=== PATIENT | male | born 1965 | race Caucasian/White ===

== ENCOUNTER 2017-09-02 14:32 | Outpatient (RCR) | payer OTHER | END 2017-09-08 12:43 | disposition home or self-care (01) | LOC: WSOH 14:32 | DX: S66.912A Strain of unspecified muscle, fascia and tendon at wrist and hand level, left hand, initial encounter (principal); X50.3XXA Overexertion from repetitive movements, initial encounter; Y92.214 College as the place of occurrence of the external cause; Y93.H1 Activity, digging, shoveling and raking; Y99.0 Civilian activity done for income or pay; Z96.9 Presence of functional implant, unspecified; Z79.84 Long term (current) use of oral hypoglycemic drugs; Z79.82 Long term (current) use of aspirin; Z88.0 Allergy status to penicillin; Z88.2 Allergy status to sulfonamides | CPT/HCPCS: 24091; A6549 ==

== ENCOUNTER → 2017-09-12 | Outpatient (CLI) | payer OTHER | LOC: COL.RAD 09-06 09:00 | DX: M87.838 Other osteonecrosis of left carpus (principal); M19.032 Primary osteoarthritis, left wrist ==

== ENCOUNTER 2017-09-14 14:47 | Outpatient (RCR) | payer OTHER | END 2017-09-30 10:12 | disposition home or self-care (01) | LOC: WSOH 14:47 | DX: S66.912D Strain of unspecified muscle, fascia and tendon at wrist and hand level, left hand, subsequent encounter (principal); M87.038 Idiopathic aseptic necrosis of left carpus; M24.132 Other articular cartilage disorders, left wrist; X50.3XXD Overexertion from repetitive movements, subsequent encounter; Y99.0 Civilian activity done for income or pay; Z88.0 Allergy status to penicillin; Z88.2 Allergy status to sulfonamides; Z79.84 Long term (current) use of oral hypoglycemic drugs; Z79.82 Long term (current) use of aspirin ==

== ENCOUNTER 2018-10-21 20:37 | Emergency (ER) | payer BC ==
[~2018-10-21] VITALS: Ht 182.9 cm; Wt 84.5 kg
[2018-10-21 20:42] VITALS: TEMP 97.4
[2018-10-21] MEDS ORDERED: TENORMIN 5050 MG/TAB (20:48)
[2018-10-21] MEDS ORDERED: NORVASC 5MG5 MG/TAB (20:49)
[2018-10-21] MEDS ORDERED: LYRICA 50MG CAP50 MG (20:49)
[2018-10-21] MEDS ORDERED: CRUTCHES MC (21:18)
[2018-10-21 21:47] VITALS: PULSE 82
== END 2018-10-21 21:48 | disposition home or self-care (01) ==
LOC: COL.ER 20:37
DX: S76.312A Strain of muscle, fascia and tendon of the posterior muscle group at thigh level, left thigh, initial encounter (principal); E11.9 Type 2 diabetes mellitus without complications; I10 Essential (primary) hypertension; Z88.0 Allergy status to penicillin; Z88.2 Allergy status to sulfonamides; Z88.5 Allergy status to narcotic agent; W22.8XXA Striking against or struck by other objects, initial encounter; Y92.008 Other place in unspecified non-institutional (private) residence as the place of occurrence of the external cause
CPT/HCPCS: J1885

== ENCOUNTER 2018-11-29 16:14 | Observation (INO) | payer BC ==
[~2018-11-29] VITALS: Ht 180.3 cm; Wt 79.3 kg
[~2018-11-29 16:14] MED LIST: CRUTCHES MC; LYRICA 50MG CAP50 MG; NORVASC 5MG5 MG/TAB; TENORMIN 5050 MG/TAB
[2018-11-29 17:15] LABS: BASO # 0.1 (0.0-0.2); BASO % 0.6 % (0.0-2.0); EOS % 0.1 % (0-4.0); GRAN # 7.2 (1.4-6.5); GRAN % 73.8 % (42.2-75.2); HEMATOCRIT 40.9 % (42.0-52.0); HEMOGLOBIN 14.6 g/dl (13.5-18.0); LYMPH % 20.1 % (20.0-51.0); MEAN CELL VOLUME 79 fl (80.0-100.0); MEAN CORPUSCULAR HEMOGLOBIN 28 pg (27.0-31.0); MEAN CORPUSCULAR HGB CONC 36 g/dl (33.0-37.0); MEAN PLATELET VOLUME 9.1 fl (7.4-10.4); MONO # 0.5 (0.1-0.6); MONO % 5.1 % (1.7-9.3); PLATELET COUNT 171 K/mm3 (130-400); RED BLOOD COUNT 5.16 M/mm3 (4.20-5.60)
[2018-11-29 17:25] LABS: INR 0.9 (0.8-3.0)
[2018-11-29 17:38] LABS: ALANINE AMINOTRANSFERASE 53 U/L (21-72); ALBUMIN 3.1 gm/dL (3.5-5.0); ALKALINE PHOSPHATASE 183 U/L (50-136); ANION GAP 13 mmol/L (7-16); AST,SGOT 100 U/L (15-37); BILIRUBIN,TOTAL 0.7 mg/dL (0.0-1.0); BLOOD UREA NITROGEN 19 mg/dL (9-20); CALCIUM 8.4 mg/dL (8.4-10.2); CARBON DIOXIDE 22 mmol/L (22-30); CHLORIDE 92 mmol/L (98-107); CREATININE, serum 1.69 (0.66-1.25); GLUCOSE 161 mg/dL (74-106); LIPASE 510 U/L (23-300); POTASSIUM 4.5 mmol/L (3.4-5.0); SODIUM 127 mmol/L (137-145); TOTAL PROTEIN 5.9 gm/dL (6.4-8.2)
[2018-11-29 17:39] LABS: C-REACTIVE PROTEIN < 0.5 mg/dL (0.0-0.9)
[2018-11-29 19:56] LABS: COLLECTION METHOD CLEAN CATCH
[2018-11-29 20:01] LABS: PH 6 (5-8); SQUAMOUS EPITHELIAL None Seen /hpf; URINE APPEARANCE Clear; URINE BACTERIA None Seen /hpf; URINE BILIRUBIN Negative (NEGATIVE); URINE BLOOD 1+ (NEGATIVE); URINE COLOR Yellow; URINE GLUCOSE 1+ (NEGATIVE); URINE KETONE Negative (NEGATIVE); URINE LEUKOCYTE ESTERASE Negative (NEGATIVE); URINE NITRATE Negative (NEGATIVE); URINE PROTEIN(semi-quant) 2+ (NEGATIVE); URINE RBC 0-2 /hpf; URINE UROBILINOGEN Negative (NEGATIVE)
--- NOTE | 2018-11-29 22:05 | NUR ---
Arrived to medical floor. Assessment complete. Lungs clear. Heart sounds normal. Bowels active x4. Pulses strong throughout. No edema noted. IV to right AC without complications. Scab to right hand and abrasion to left forearm present. Reporting ABD pain 5/10 at this time. Orientated to medical floor and call lights. All questions answered at this time. Denies needs. Call light in reach.
[2018-11-29] MEDS ORDERED: NEURONTIN300 MG/CAP PO (22:09)
[2018-11-29] MEDS ORDERED: TOPROL XL100 MG PO (22:09)
[2018-11-29] MEDS ORDERED: NORVASC 10MG10 MG PO (22:11)
[2018-11-29] MEDS ORDERED: NEURONTIN600 MG/TAB PO (22:12)
[2018-11-29] MEDS ORDERED: ZESTRIL40 MG PO (22:16)
--- NOTE | 2018-11-29 22:43 | NUR ---
Spoke with Dr. Phillip to clarify orders. Decrease IV fluids to 125ml/hr. Clear liquid diet until 0600. Levaquin 750mg IV Q24H for 7 days. Updated regarding in accuate medication list. Patient will provide list in AM. No other orders at this time.
[2018-11-29 22:57] VITALS: BP 155/107; TEMP 97.9
[2018-11-29 23:00] VITALS: BP 189/101
--- NOTE | 2018-11-29 23:20 | NUR ---
DIRECTOR OF CATEGORY MANAGEMENT reports blood pressure elevated at 189/101, patient reporting increased ABD pain. Rechecked blood pressure 166/96. Provided with PRN fentanyl. Will closely monitor. Denies other needs at this time.
[2018-11-29 23:23] VITALS: BP 166/96
[2018-11-29 23:48] VITALS: BP 148/91
[2018-11-30] VITALS (9 sets, daily range): BP systolic 137–173; BP diastolic 83–97; PULSE 82–112; TEMP 98.3–98.6
--- NOTE | 2018-11-30 02:16 | NUR ---
Rating pain 7/10 in ABD at this time. Provided with PRN fentanyl
--- NOTE | 2018-11-30 04:23 | NUR ---
Patient requested PRN fentanyl for pain. Provided to patient. Blood pressure elevated. Provided with PRN hydralazine as ordered.
--- NOTE | 2018-11-30 05:32 | NUR ---
Patient required x3 doses of fentanyl for pain control throughout night. Hypertensive was provided with PRN hydralazine. Otherwise uneventful night. Resting in bed this AM. Denies needs at this time.
[2018-11-30 06:10] LABS: BASO # 0.1 (0.0-0.2); BASO % 0.8 % (0.0-2.0); EOS % 0.6 % (0-4.0); GRAN # 4.6 (1.4-6.5); GRAN % 69.5 % (42.2-75.2); HEMATOCRIT 38.4 % (42.0-52.0); HEMOGLOBIN 13.6 g/dl (13.5-18.0); LYMPH # 1.4 (1.2-3.4); LYMPH % 20.6 % (20.0-51.0); MEAN CELL VOLUME 81 fl (80.0-100.0); MEAN CORPUSCULAR HEMOGLOBIN 29 pg (27.0-31.0); MEAN CORPUSCULAR HGB CONC 35 g/dl (33.0-37.0); MEAN PLATELET VOLUME 9.2 fl (7.4-10.4); MONO # 0.5 (0.1-0.6); PLATELET COUNT 141 K/mm3 (130-400); RED BLOOD COUNT 4.75 M/mm3 (4.20-5.60)
[2018-11-30 06:25] LABS: ALBUMIN 2.9 gm/dL (3.5-5.0); CALCIUM 8.3 mg/dL (8.4-10.2); CREATININE, serum 1.4 (0.66-1.25); POTASSIUM 4.1 mmol/L (3.4-5.0); TOTAL PROTEIN 5.8 gm/dL (6.4-8.2)
--- NOTE | 2018-11-30 06:48 | NUR ---
Report given to REBEKA Terrell
--- NOTE | 2018-11-30 08:45 | NUR ---
Patient assessment complete and charted. Patient A&O. Denies dizziness, SOB, palpitations, N/V. Pt on room air. RAC IV with NS @125, no complications. Pt c/o upper abdominal pain, rating 2/10 and pain 10/10 in feet d/t neuropathy. Pt has scabs over top of rt hand and over rt eyebrow, stated per pt from "fall while using crutches at home". BP 137/86, no hydralazine PRN required. Pt using bedside urinal. Denies other needs at this time. Call light within reach.
[2018-11-30] MEDS ORDERED: LIPITOR 40MG TA40 MG PO (10:19)
[2018-11-30] MEDS ORDERED: FLEXERIL 1010 MG/TAB PO (10:20)
[2018-11-30] MEDS ORDERED: VOLTAREN GEL 1%1 TU TP (10:21)
[2018-11-30] MEDS ORDERED: FLUOROURACIL5% TP (10:22)
[2018-11-30] MEDS ORDERED: GLUCOPHAGE1000 MG PO (10:23)
[2018-11-30] MEDS ORDERED: AMARYL1 MG PO (10:23)
[2018-11-30] MEDS ORDERED: PRILOSEC 20MG20 MG PO (10:24)
--- NOTE | 2018-11-30 10:24 | NUR ---
Initial visit; Patient thanked Strip Mill Operator for looking in on him and keeping him in Strip Mill Operator's prayers. Patient is to have surgical procedure this afternoon and is experiencing a lot of pain. Strip Mill Operator encouraged him to keep his nurse informed.
[2018-11-30] MEDS ORDERED: VICTOZA6 MG/ML SQ (10:25)
--- NOTE | 2018-11-30 16:23 | NUR ---
SW met with patient to discuss discharge planning. Patient lives independently at home. Patient's PCP is Dr Sue and he obtains prescriptions from [facility] in [place]. Patient does not use any DME or home health services. Patient does not have a DPOA-HC and he is not interested in completing one. SW does not anticipate any discharge needs.
--- NOTE | 2018-11-30 19:22 | NUR ---
report given to REBEKA Duvall. No other needs at this time.
--- NOTE | 2018-11-30 19:46 | NUR ---
Resting in bed. Assessment complete. Lungs clear. Heart sounds normal. Bowels active x4. Pulses strong throughout. No edema noted. Right hand scab present. Left forearm abrasion. IV in right AC without complications. Reports 2/10 pain in ABD and feet at this time. Denies need for intervention. Denies other needs at this time. Call light in reach.
--- NOTE | 2018-11-30 23:55 | NUR ---
Resting in bed. Denies needs. Call light in reach.
[2018-12-01] VITALS (8 sets, daily range): BP systolic 123–176; BP diastolic 54–108; PULSE 89–109; TEMP 97.3–98.9
[2018-12-01 05:38] LABS: BASO # 0.1 (0.0-0.2); BASO % 1.4 % (0.0-2.0); EOS # 0.1 (0.0-0.7); EOS % 1.4 % (0-4.0); GRAN # 1.8 (1.4-6.5); GRAN % 50.1 % (42.2-75.2); HEMOGLOBIN 11.9 g/dl (13.5-18.0); LYMPH # 1.3 (1.2-3.4); LYMPH % 36.2 % (20.0-51.0); MEAN CELL VOLUME 83 fl (80.0-100.0); MEAN CORPUSCULAR HEMOGLOBIN 28 pg (27.0-31.0); MEAN CORPUSCULAR HGB CONC 34 g/dl (33.0-37.0); MEAN PLATELET VOLUME 9.6 fl (7.4-10.4); MONO # 0.4 (0.1-0.6); MONO % 10.6 % (1.7-9.3); PLATELET COUNT 116 K/mm3 (130-400); RED BLOOD COUNT 4.19 M/mm3 (4.20-5.60); REDCELL DISTRIBUTION WIDTH-CV 12.1 % (11.5-14.5)
[2018-12-01 05:41] LABS: HEMATOCRIT 34.6 % (42.0-52.0)
[2018-12-01 05:46] LABS: CALCIUM 8.3 mg/dL (8.4-10.2); CREATININE, serum 1.39 (0.66-1.25); POTASSIUM 3.9 mmol/L (3.4-5.0)
--- NOTE | 2018-12-01 06:05 | NUR ---
Patient resting in bed this AM. Had uneventful night. Denies needs. Rating pain at 1/10
--- NOTE | 2018-12-01 06:51 | NUR ---
Report given to REBEKA Terrell
--- NOTE | 2018-12-01 09:34 | NUR ---
Patient assessment complete and charted. Patient back from HIDA scan around 0915. Patient denies dizziness, chest pain, N/V, palpitations. Pt c/o Lt sided abdominal tenderness when you palpate. Rating pain 3/10 if moving around, per patient sore from the scan. Patient rates pain in feet 10/10. When palpating pedal pulses, patient jerked feet. Pt does state the neurontin is helping, he had not received it earlier in the day prior due to incomplete med rec. Patient on room air. RAC IV fluids infusing, no complications. Denies other needs at this time. Call light within reach.
--- NOTE | 2018-12-01 17:30 | NUR ---
Patient down for caty procedure at this time. Consent signed, all questions answered. No orders were put in, patient had NS at 125 in RAC running. This nurse unaware of time of procedure until called that they were coming to get patient "in 15 minutes". Patient had been NPO since midnight prior. No other needs.
--- NOTE | 2018-12-01 19:56 | NUR ---
report given to REBEKA Amezquita, she will resume cares. Patient still down for caty procedure.
--- NOTE | 2018-12-02 01:25 | NUR ---
Completed assessment and medication administration once return to floor; PT stable and able to answer all questions and verbalize concerns; PT denied pain or discomfort at time of assessment; PT A&Ox4, BS hypoactive x4, voiding using urinal, replaced IV site to right AC; New IV site moved to right wrist with NS running at 125ml/hr; four LAP caty site to ABD with clean dry bandaide coverage; No further assessed or verbalized concerns at time of exit; PT able to return to comfortable position in bed with personal items and call light within reach; Will continue to monitor. CDA
--- NOTE | 2018-12-02 03:28 | NUR ---
PT doing well during rounds with minimal report of pain to ABD post LAP Beata; No further needs or concerns at time of exit; Bandaide dressings x4 in place clean, dry and intact; NS running at 125ml/hr to RW IV initated 12/02/18; Will continue to monitor. CDA
[2018-12-02 03:51] VITALS: BP 152/88; PULSE 109; TEMP 98.4
[2018-12-02 07:03] LABS: HEMOGLOBIN 11.8 g/dl (13.5-18.0); MEAN CELL VOLUME 84 fl (80.0-100.0); MEAN CORPUSCULAR HEMOGLOBIN 28 pg (27.0-31.0); MEAN CORPUSCULAR HGB CONC 34 g/dl (33.0-37.0); MEAN PLATELET VOLUME 10.2 fl (7.4-10.4); PLATELET COUNT 125 K/mm3 (130-400); RED BLOOD COUNT 4.16 M/mm3 (4.20-5.60); REDCELL DISTRIBUTION WIDTH-CV 11.9 % (11.5-14.5)
--- NOTE | 2018-12-02 07:13 | NUR ---
Report given to REBEKA Tristan; No significant changes at time of shift change. CDA
[2018-12-02 07:16] VITALS: BP 154/100; PULSE 108; TEMP 98.2
[2018-12-02 07:16] LABS: CALCIUM 8.1 mg/dL (8.4-10.2); CREATININE, serum 1.46 (0.66-1.25); POTASSIUM 4.1 mmol/L (3.4-5.0)
[2018-12-02 07:21] LABS: HEMATOCRIT 34.8 % (42.0-52.0)
--- NOTE | 2018-12-02 08:30 | NUR ---
PT INT'D AT THIS TIME DUE TO IV FLUIDS TO SALINE LOCK ORDER, PT DRINKING ALOT OF WATER, STATED HE HAS HAD 4-5 JUGS OF WATER.
--- NOTE | 2018-12-02 10:00 | NUR ---
PT ENCOURAGED TO AMBULATE, PT STATED THAT HE IS SOME WHAT SHAKEY BUT FEELS GOOD OTHERWISE. PT ATTEMPTING TO FIND RIDE TO DISCHARGE HOME. NO QUESTIONS VOICED AT THIS TIME.
[2018-12-02 10:39] LABS: BAND 1 % (0-10); LYMPHOCYTE 6 % (20.0-51.0); NEUTROPHILS 93 % (42.0-75.2); PLATELET ESTIMATE DECREASED (NORMAL)
[2018-12-02 10:40] LABS: HYPOCHROMIA 1+
--- NOTE | 2018-12-02 12:20 | NUR ---
PT EDUCATION PROVIDED, PAPERWORK SIGNED. IV REMOVED AT THIS TIME. PT STATED THAT HE WAS GOING TO [place] RIGHT AFTER DISCHARGE AND GET SOME GATERAID AND HIS SCRIPTS. PT CALLED HIS RIDE AND ARRANAGED FOR A RIDE.
--- NOTE | 2018-12-02 12:35 | NUR ---
PT ESCORTED OUT OF FACILITY VIA W/C BY THIS NURSE. PT ABLE TO FIND A RIDE TO GET TO [place] AND HOME.
== END 2018-12-02 12:35 | disposition home or self-care (01) ==
LOC: COL.ER 16:14 → MEDICAL 19:48
PROVIDERS: Emergency Medicine; Nurse Practitioner; Physician Assistant; ADMIT Surgery
DX: K80.12 Calculus of gallbladder with acute and chronic cholecystitis without obstruction (principal); E87.1 Hypo-osmolality and hyponatremia; K86.0 Alcohol-induced chronic pancreatitis; E11.40 Type 2 diabetes mellitus with diabetic neuropathy, unspecified; Z79.4 Long term (current) use of insulin; Q60.0 Renal agenesis, unilateral; Z90.49 Acquired absence of other specified parts of digestive tract; Z88.0 Allergy status to penicillin; Z88.5 Allergy status to narcotic agent; Z88.2 Allergy status to sulfonamides; Z79.899 Other long term (current) drug therapy; D69.6 Thrombocytopenia, unspecified
CPT/HCPCS: 99223; 99233-AI; A9537; G0378; J0360; J0690; J1100; J1170; J1815; J1956; J2405; J2704; J2710; J3010; J7030

== ENCOUNTER 2019-02-25 08:24 | Emergency (ER) | payer BC ==
[~2019-02-25] VITALS: Ht 180.3 cm; Wt 79.1 kg
[~2019-02-25 08:24] MED LIST changes: +AMARYL1 MG PO; +FLEXERIL 1010 MG/TAB PO; +FLUOROURACIL5% TP; +GLUCOPHAGE1000 MG PO; +LIPITOR 40MG TA40 MG PO; +NEURONTIN300 MG/CAP PO; +NEURONTIN600 MG/TAB PO; +NORVASC 10MG10 MG PO; +PRILOSEC 20MG20 MG PO; +TOPROL XL100 MG PO; +VICTOZA6 MG/ML SQ; +VOLTAREN GEL 1%1 TU TP; +ZESTRIL40 MG PO
[2019-02-25 08:26] VITALS: TEMP 98.9
[2019-02-25] MEDS ORDERED: CRUTCHES MC (09:34)
[2019-02-25 10:45] VITALS: BP 118/85; PULSE 90
== END 2019-02-25 10:45 | disposition home or self-care (01) ==
LOC: COL.ER 08:24
DX: S82.891A Other fracture of right lower leg, initial encounter for closed fracture (principal); E11.9 Type 2 diabetes mellitus without complications; X50.1XXA Overexertion from prolonged static or awkward postures, initial encounter; Y92.009 Unspecified place in unspecified non-institutional (private) residence as the place of occurrence of the external cause
CPT/HCPCS: Q4045

== ENCOUNTER 2019-06-13 11:26 | Inpatient (IN) | payer BC ==
[2019-06-13] VITALS (536 sets, daily range): BP systolic 131–151; BP diastolic 74–99; PULSE 74–98; TEMP 98–98.6; O2SAT 66–100
[~2019-06-13] VITALS: Ht 180.3 cm; Wt 71.4 kg
[2019-06-13 12:24] LABS: BASO % 0.1 % (0.0-2.0); GRAN # 8.6 (1.4-6.5); GRAN % 89.5 % (42.2-75.2); LYMPH # 0.9 (1.2-3.4); MEAN CELL VOLUME 88 fl (80.0-100.0); MEAN CORPUSCULAR HGB CONC 34 g/dl (33.0-37.0); MEAN PLATELET VOLUME 10.2 fl (7.4-10.4); MONO # 0.1 (0.1-0.6); MONO % 0.8 % (1.7-9.3); PLATELET COUNT 181 K/mm3 (130-400); RED BLOOD COUNT 2.24 M/mm3 (4.20-5.60); REDCELL DISTRIBUTION WIDTH-CV 13.5 % (11.5-14.5)
[2019-06-13 12:26] LABS: HEMATOCRIT 19.8 % (42.0-52.0); HEMOGLOBIN 6.8 g/dl (13.5-18.0); MEAN CORPUSCULAR HEMOGLOBIN 30 pg (27.0-31.0)
[2019-06-13 12:43] LABS: ALANINE AMINOTRANSFERASE 98 U/L (21-72); ALBUMIN 2.3 gm/dL (3.5-5.0); ALKALINE PHOSPHATASE 196 U/L (50-136); ANION GAP 10 mmol/L (7-16); AST,SGOT 162 U/L (15-37); BILIRUBIN,TOTAL 0.4 mg/dL (0.0-1.0); BLOOD UREA NITROGEN 20 mg/dL (9-20); CALCIUM 7.5 mg/dL (8.4-10.2); CARBON DIOXIDE 20 mmol/L (22-30); CHLORIDE 100 mmol/L (98-107); CREATININE, serum 1.36 (0.66-1.25); GLUCOSE 332 mg/dL (74-106); POTASSIUM 4.3 mmol/L (3.4-5.0); SODIUM 130 mmol/L (137-145); TOTAL PROTEIN 4.7 gm/dL (6.4-8.2)
[2019-06-13 12:45] LABS: C-REACTIVE PROTEIN < 0.5 mg/dL (0.0-0.9); LIPASE < 10 U/L (23-300)
[2019-06-13 12:51] LABS: TROPONIN-I < 0.012 ng/mL (0.000-0.035)
[2019-06-13] MEDS ORDERED: NORVASC 5MG5 MG/TAB PO (13:15)
[2019-06-13] MEDS ORDERED: LASIX 20MG TABL20 MG PO (13:18)
[2019-06-13] MEDS ORDERED: LANTUS SOLOS100 U/ML SQ (13:20)
[2019-06-13] MEDS ORDERED: ALEVE 220MG220 MG PO (13:21)
--- NOTE | 2019-06-13 14:30 | NUR ---
Report received from ER and pt brought to ICU room 1 per stretcher. Pt was able to stand and pivot to bed but did state he gets dizzy and had been falling at home. Fall precautions implemented and educated pt on bedrest and use of call light for help. Assessment complete. No concerns at this time, will continue to follow.
[2019-06-13] MEDS ORDERED: NEURONTIN300 MG/CAP PO (15:01)
--- NOTE | 2019-06-13 18:18 | NUR ---
Pt called stating he was passing gas. Turned pt and small amount of bloody stool noted on pad. Pt cleaned up and instructed on use of bedpan and to call if needed. Will continue to follow.
--- NOTE | 2019-06-13 19:06 | NUR ---
Report given to Nichelle STALEY and care resumed.
--- NOTE | 2019-06-13 21:30 | NUR ---
Assisted with pernell-care after incontinent stool. medium amount of dark reddish black gelatinous stool noted. Patient reported feeling very sweaty and hungry accu check performed and blood glucose 62. Patient alert and oriented; provided juice and jello at this time.
[2019-06-13 22:39] LABS: HEMATOCRIT 25.7 % (42.0-52.0); HEMOGLOBIN 8.7 g/dl (13.5-18.0)
[2019-06-13 22:41] LABS: PROTHROMBIN TIME 12.2 SECONDS (9.7-12.8)
[2019-06-14] VITALS (699 sets, daily range): BP systolic 147–165; BP diastolic 81–96; PULSE 64–81; TEMP 97.8–98.8; O2SAT 67–100
[2019-06-14 06:22] LABS: ALBUMIN 2.3 gm/dL (3.5-5.0); BILIRUBIN,TOTAL 0.6 mg/dL (0.0-1.0); CREATININE, serum 1.11 (0.66-1.25); POTASSIUM 3.6 mmol/L (3.4-5.0); TOTAL PROTEIN 4.8 gm/dL (6.4-8.2)
[2019-06-14 06:40] LABS: EOS % 0.1 % (0-4.0); GRAN # 5.6 (1.4-6.5); GRAN % 67.3 % (42.2-75.2); LYMPH # 2.4 (1.2-3.4); LYMPH % 28.5 % (20.0-51.0); MEAN CELL VOLUME 87 fl (80.0-100.0); MEAN CORPUSCULAR HGB CONC 35 g/dl (33.0-37.0); MEAN PLATELET VOLUME 10.1 fl (7.4-10.4); MONO # 0.3 (0.1-0.6); MONO % 3.5 % (1.7-9.3); PLATELET COUNT 106 K/mm3 (130-400); RED BLOOD COUNT 2.99 M/mm3 (4.20-5.60); REDCELL DISTRIBUTION WIDTH-CV 13.4 % (11.5-14.5)
[2019-06-14 06:44] LABS: HEMATOCRIT 26.1 % (42.0-52.0); MEAN CORPUSCULAR HEMOGLOBIN 30 pg (27.0-31.0)
--- NOTE | 2019-06-14 07:00 | NUR ---
Patient report recieved from REBEKA Steward. Patient departs with REBEKA Deal for ordered EGD with chart sent with.
--- NOTE | 2019-06-14 07:50 | NUR ---
Patient returns from endoscopy at this time and is returned to ICU monitors. Care resumed.
--- NOTE | 2019-06-14 08:15 | NUR ---
Bedside testicular US completed by tech at this time.
--- NOTE | 2019-06-14 09:43 | NUR ---
Dr. Crane rounds at this time.
--- NOTE | 2019-06-14 11:26 | NUR ---
Initial visit; Patient thanked Detonator Assembler for looking in on him and offering spiritual care. Patient recalls Detonator Assembler from a for yahaira visit and states he is doing better.
--- NOTE | 2019-06-14 11:28 | NUR ---
Cone Tender met with patient to discuss discharge planning. Patient lives alone outside of [employer] [place]. Patient's next of kin is his sister, Lyn (ph#[phone]). Patient sees Dr. Sue for primary care and obtains medications from [facility] in [place]. Patient states he also sees Dr. Sharp. Patient does not use any DME, but reports he recently started checking his blood sugars at home again. Patient does not have Advance Directives but was interested in taking home form. SW provided. Patient plans to return home upon discharge. SW attended clinical rounds with the team and patient to move to the floor today. PT/OT ordered for patient. No additional concerns at this time.
--- NOTE | 2019-06-14 13:15 | NUR ---
PATIENT ADMITED INTO ROOM 347 FROM ICU. PATIENT ADMITED WITH GI BLEED. EGD THIS AM SHOWED ULCERS, NO ACTIVE BLEEDING. VSS. AM HBG WAS 9.0. PATIENT ASYMPTOMATIC. HEAD TO TOE WNL. ORIENTED TO ROOM.
--- NOTE | 2019-06-14 14:40 | NUR ---
PHYSICAL THERAPY AT BEDSIDE. SEE PT NOTES
--- NOTE | 2019-06-14 17:30 | NUR ---
TALKED WITH PATIENT ABOUT NO FREE WATER. NA OF 131. PATIENT REPORTS FEELING DIAPHORTIC, WEAK & THIRSTY. EDUCATED PATIENT. WILL MONITOR. PATIENT ASYMPTOMATIC AT REST.
--- NOTE | 2019-06-14 19:10 | NUR ---
Pt resting in bed. No distress noted. Pt eating jello and popsicles and meal tray. Denies nausea. Reports pain 3/10 that he describes as gas pain in the umbilical region. BS hyperactive x4. Respirations even and unlabored. Lungs clear. Pt reports frequent BMs with "some red blood and some darker areas". No observed. Pt denies needs. SCDs in place. Call light in reach. Will continue to monitor.
[2019-06-14 20:26] LABS: HEMATOCRIT 29.4 % (42.0-52.0)
--- NOTE | 2019-06-14 21:20 | NUR ---
Pt has been up to bathroom with loose stools x3 in the last hour. Pt incontinent x1.
[2019-06-15 04:04] VITALS: BP 171/87; PULSE 79; TEMP 98.5
[2019-06-15 05:15] VITALS: BP 155/83
--- NOTE | 2019-06-15 05:15 | NUR ---
PRN Hydralazine brought into room to adminster for SBP of 171. Blood pressure rechecked prior to administration-155/83. Dose held.
[2019-06-15 05:23] VITALS: BP 155/83
--- NOTE | 2019-06-15 06:30 | NUR ---
Pt resting this AM. Pt has rested periodically with multiple episodes of diarrhea. Diarrhea has resolved at this time, but pt reports some gas pains.
--- NOTE | 2019-06-15 07:00 | NUR ---
Report given to Kamille STALEY. Pt sitting up in bed. No distress noted. Pt denies pain at this time. No needs noted.
[2019-06-15 07:30] VITALS: BP 167/83; PULSE 81; TEMP 97.9
--- NOTE | 2019-06-15 07:48 | NUR ---
Patient resting in bed. Reports being cold this am. warm blanket provided. Denies pain. He ate all his breakfast, no n/v. Blood sugar stable. Scds ble. Int. Up to the bathroom, reports loose stools. Unsteady gait, reports neuropathy. Will encourage hygiene today.
[2019-06-15 08:03] LABS: ALBUMIN 2.7 gm/dL (3.5-5.0); BILIRUBIN,TOTAL 0.8 mg/dL (0.0-1.0); CALCIUM 8.1 mg/dL (8.4-10.2); CREATININE, serum 1.19 (0.66-1.25); POTASSIUM 3.7 mmol/L (3.4-5.0); TOTAL PROTEIN 5.4 gm/dL (6.4-8.2)
[2019-06-15 08:06] LABS: BASO % 0.1 % (0.0-2.0); EOS % 0.2 % (0-4.0); GRAN # 7.9 (1.4-6.5); GRAN % 80.5 % (42.2-75.2); LYMPH # 1.6 (1.2-3.4); LYMPH % 16.3 % (20.0-51.0); MEAN CELL VOLUME 89 fl (80.0-100.0); MEAN CORPUSCULAR HEMOGLOBIN 31 pg (27.0-31.0); MEAN CORPUSCULAR HGB CONC 34 g/dl (33.0-37.0); MEAN PLATELET VOLUME 9.9 fl (7.4-10.4); MONO # 0.3 (0.1-0.6); MONO % 2.5 % (1.7-9.3); PLATELET COUNT 111 K/mm3 (130-400); RED BLOOD COUNT 3.28 M/mm3 (4.20-5.60); REDCELL DISTRIBUTION WIDTH-CV 13.7 % (11.5-14.5)
[2019-06-15 08:18] LABS: HEMATOCRIT 29.3 % (42.0-52.0)
[2019-06-15] MEDS ORDERED: PROTONIX 40MG T40 MG PO (09:31)
--- NOTE | 2019-06-15 10:08 | NUR ---
Hospitalist team rounded. Plans for discharge this afternoon.
[2019-06-15 11:16] VITALS: BP 166/93; PULSE 103; TEMP 98
--- NOTE | 2019-06-15 13:42 | NUR ---
The patient is to discharge home today, 06/15. The patient is needing a taxi voucher. SW informed private household worker and voucher was provided for the patient. There are no additional needs at this time.
--- NOTE | 2019-06-15 13:46 | NUR ---
Patient in showVianca swenson assisting. Patient discharge paperwork completed.
--- NOTE | 2019-06-15 15:00 | NUR ---
All discharge paperwork reviewed. We reviewed new script at pharmacy & reviewed detailed list of med list. diet restrictions discussed & importance of closely following his blood pressure & blood sugars. Pcp & gi appt made. work note given. Patient getting ride home with go van go. all belongigns taken home.
== END 2019-06-15 16:14 | disposition home or self-care (01) | DRG 378 ==
LOC: COL.ER 11:26 → ICU 13:19 → SURG 06-14 13:15
PROVIDERS: Emergency Medicine; Internal Medicine Gastroenterology; Nurse Practitioner Family; Physician Assistant; ADMIT Internal Medicine
PROC: 0DJ08ZZ Inspection of Upper Intestinal Tract, Via Natural or Artificial Opening Endoscopic (ICD-10-PCS; principal; 2019-06-14 07:30)
DX: K26.4 Chronic or unspecified duodenal ulcer with hemorrhage (principal); E87.2 Acidosis; K86.1 Other chronic pancreatitis; E44.0 Moderate protein-calorie malnutrition; E78.5 Hyperlipidemia, unspecified; D50.0 Iron deficiency anemia secondary to blood loss (chronic); I12.9 Hypertensive chronic kidney disease with stage 1 through stage 4 chronic kidney disease, or unspecified chronic kidney disease; Z66 Do not resuscitate; E11.40 Type 2 diabetes mellitus with diabetic neuropathy, unspecified; E11.22 Type 2 diabetes mellitus with diabetic chronic kidney disease; E11.65 Type 2 diabetes mellitus with hyperglycemia; N18.9 Chronic kidney disease, unspecified; R21 Rash and other nonspecific skin eruption; Z79.4 Long term (current) use of insulin; Z88.0 Allergy status to penicillin; Z88.2 Allergy status to sulfonamides; Z88.6 Allergy status to analgesic agent
CPT/HCPCS: 99223-AI; 99232-AI; C9113; J0360; J1815; J2704; J7030; P9016

== ENCOUNTER 2019-11-12 15:13 | Inpatient (IN) | payer BC ==
[~2019-11-12] VITALS: Ht 180.3 cm; Wt 78.1 kg
[~2019-11-12 15:13] MED LIST changes: +ALEVE 220MG220 MG PO; +LANTUS SOLOS100 U/ML SQ; +LASIX 20MG TABL20 MG PO; +NORVASC 5MG5 MG/TAB PO; +PROTONIX 40MG T40 MG PO
[2019-11-12 16:10] LABS: ALANINE AMINOTRANSFERASE 36 U/L (4-49); ALBUMIN 2.7 gm/dL (3.5-5.0); ALKALINE PHOSPHATASE 209 U/L (50-136); ANION GAP 7 mmol/L (7-16); AST,SGOT 47 U/L (15-37); BILIRUBIN,TOTAL 0.4 mg/dL (0.0-1.0); BLOOD UREA NITROGEN 17 mg/dL (9-20); CALCIUM 8.5 mg/dL (8.4-10.2); CARBON DIOXIDE 15 mmol/L (22-30); CHLORIDE 117 mmol/L (98-107); CREATININE, serum 1.85 (0.66-1.25); GLUCOSE 165 mg/dL (74-106); POTASSIUM 4.5 mmol/L (3.4-5.0); SODIUM 139 mmol/L (137-145); TOTAL PROTEIN 6.3 gm/dL (6.4-8.2)
[2019-11-12 16:11] LABS: C-REACTIVE PROTEIN < 0.5 mg/dL (0.0-0.9)
[2019-11-12 16:13] LABS: INR 1.2 (0.8-3.0); PROTHROMBIN TIME 13.1 SECONDS (9.7-12.8)
[2019-11-12 16:16] LABS: PARTIAL THROMBOPLASTIN TIME 37.5 SECONDS (26.0-37.0)
[2019-11-12 16:17] LABS: BASO # 0.1 (0.0-0.2); BASO % 0.8 % (0.0-2.0); EOS # 0.2 (0.0-0.7); EOS % 3.7 % (0-4.0); GRAN % 67.7 % (42.2-75.2); LYMPH # 1.2 (1.2-3.4); LYMPH % 19.8 % (20.0-51.0); MEAN CELL VOLUME 95 fl (80.0-100.0); MEAN CORPUSCULAR HGB CONC 31 g/dl (33.0-37.0); MONO # 0.5 (0.1-0.6); MONO % 7.7 % (1.7-9.3); PLATELET COUNT 201 K/mm3 (130-400); RED BLOOD COUNT 3.31 M/mm3 (4.20-5.60); REDCELL DISTRIBUTION WIDTH-CV 14.3 % (11.5-14.5)
[2019-11-12 16:20] LABS: HEMATOCRIT 31.5 % (42.0-52.0); HEMOGLOBIN 9.7 g/dl (13.5-18.0); MEAN CORPUSCULAR HEMOGLOBIN 29 pg (27.0-31.0)
[2019-11-12 16:21] LABS: TROPONIN-I < 0.012 ng/mL (0.000-0.035)
[2019-11-12 17:01] LABS: COLLECTION METHOD CLEAN CATCH
[2019-11-12 17:08] LABS: MUCOUS Present /lpf; PH 5 (5-8); SQUAMOUS EPITHELIAL 0-2 /hpf; URINE APPEARANCE Hazy; URINE BACTERIA None Seen /hpf; URINE BILIRUBIN Negative (NEGATIVE); URINE BLOOD Negative (NEGATIVE); URINE COLOR Yellow; URINE GLUCOSE 3+ (NEGATIVE); URINE KETONE Negative (NEGATIVE); URINE LEUKOCYTE ESTERASE Negative (NEGATIVE); URINE NITRATE Negative (NEGATIVE); URINE PROTEIN(semi-quant) 1+ (NEGATIVE); URINE RBC 0-2 /hpf; URINE UROBILINOGEN Negative (NEGATIVE)
[2019-11-12] MEDS ORDERED: JARDIANCE10 (17:28)
[2019-11-12] MEDS ORDERED: PRINIVIL40 MG PO (17:28)
[2019-11-12] MEDS ORDERED: FOLIC ACID 11 MG/TA1 PO (17:33)
[2019-11-12] MEDS ORDERED: QUESTRAN4 GM/9 GM PO (17:34)
[2019-11-12] MEDS ORDERED: ZYPREXA 5MG5 MG PO (17:34)
[2019-11-12] MEDS ORDERED: BASAGLAR K100 UNIT/1 SQ (17:35)
[2019-11-12] MEDS ORDERED: ASPIRIN 81M81 MG/TA2 PO (18:05)
[2019-11-12] MEDS ORDERED: ALLEGRA 180MG180 MG PO (18:06)
[2019-11-12] MEDS ORDERED: ELOCON0.11 TOP (18:10)
--- NOTE | 2019-11-12 19:30 | NUR ---
Arrived to medical floor. Assessment complete. Lungs diminished throughout. Heart sounds normal. Bowels active, ABD firm and distended. . Pulses present. Bilateral lower leg edema +3 and scrotal edema +2. Bilateral lower extremity erthema present with right knee abrasion. Patient also had multiple scabbed abrasions to forearms present. Patient has hui catheter in place to dependent drainage with clear yellow urine. INT right AC without complications. Denies pain at this time. Orientated to medical floor, room and call lights. All questions answered. Call light in reach. Mallika notified of patients arrival.
[2019-11-12 19:47] VITALS: BP 155/87; PULSE 81; TEMP 97.6
[2019-11-12 19:50] VITALS: BP 155/87; PULSE 80; TEMP 97.6
--- NOTE | 2019-11-12 22:00 | NUR ---
Resting in bed. Denies needs. Call light in reach.
--- NOTE | 2019-11-12 22:35 | NUR ---
Mallika TRUJILLO added order for lasix 40mg. Patient received 20mg while in ED. Per Mallika mooney to do an additional 20mg tonight and start 40mg in AM. Order added.
--- NOTE | 2019-11-12 23:27 | NUR ---
Patient resting in bed. Denies pain at this time. Denies needs. Call light in reach.
[2019-11-12 23:31] VITALS: BP 145/78; PULSE 77; TEMP 97.6
[2019-11-13 03:31] VITALS: BP 148/87; PULSE 75; TEMP 97.7
--- NOTE | 2019-11-13 06:14 | NUR ---
Patient had x1 episode of incontinent stool. Cares provided. Otherwise uneventful night. Resting in bed this AM. Call light in reach.
[2019-11-13 07:30] LABS: BASO # 0.1 (0.0-0.2); BASO % 1.3 % (0.0-2.0); EOS # 0.2 (0.0-0.7); EOS % 5.9 % (0-4.0); GRAN # 2.5 (1.4-6.5); LYMPH # 0.9 (1.2-3.4); LYMPH % 22.6 % (20.0-51.0); MEAN CELL VOLUME 93 fl (80.0-100.0); MEAN CORPUSCULAR HGB CONC 31 g/dl (33.0-37.0); MEAN PLATELET VOLUME 9.9 fl (7.4-10.4); MONO # 0.3 (0.1-0.6); MONO % 6.9 % (1.7-9.3); PLATELET COUNT 172 K/mm3 (130-400); RED BLOOD COUNT 3.18 M/mm3 (4.20-5.60); REDCELL DISTRIBUTION WIDTH-CV 14.3 % (11.5-14.5)
[2019-11-13 07:32] LABS: HEMATOCRIT 29.7 % (42.0-52.0); HEMOGLOBIN 9.1 g/dl (13.5-18.0); MEAN CORPUSCULAR HEMOGLOBIN 29 pg (27.0-31.0)
--- NOTE | 2019-11-13 07:33 | NUR ---
Report given to REBEKA Lake
[2019-11-13 07:40] LABS: ALBUMIN 2.2 gm/dL (3.5-5.0); BILIRUBIN,TOTAL 0.4 mg/dL (0.0-1.0); CALCIUM 8.5 mg/dL (8.4-10.2); CREATININE, serum 1.7 (0.66-1.25); POTASSIUM 4.2 mmol/L (3.4-5.0); TOTAL PROTEIN 5.5 gm/dL (6.4-8.2)
[2019-11-13 08:00] VITALS: BP 148/88; PULSE 75; TEMP 98
--- NOTE | 2019-11-13 11:51 | NUR ---
The patient is on contact precautions. SW contacted the patient to discuss discharge plan. The patient lives outside of [place]. He reports independence with ADLs and does not have any DME. The patient's PCP is Dr. Min Sue and he receives his medications at [facility] in [place]. He reports no difficulties obtaining his meds. The patient does not have advanced directives and he was not interested in completing them at this time. He states that he is not and does not have any children. He states that his next of kin is his sisters: Sandra Jean (ph#[phone]) and Lyn (ph#[phone]). The patient plans to return home upon discharge. SW to continue to follow as needed.
[2019-11-13 16:08] VITALS: BP 150/89; PULSE 94; TEMP 98.4
--- NOTE | 2019-11-13 17:49 | NUR ---
PT HAS HAD MULTIPLE BOUTS OF LOOSE, OILY STOOL. PT STATES "THIS IS FROM MY GALLBLADDER BEING REMOVED. I SHOULD PROBABLY TAKE SOME IMMODIUM." THIS RN INFORMED HIM, THAT THE PROVIDER WOULD BE NOTIFIED AND ASKED FOR THIS MEDICATION.
--- NOTE | 2019-11-13 18:13 | NUR ---
Pt has had an uneventful day. incontinence of bowels has been a problem today, and pt states it's normal for him, and that he takes immodium when it gets out of control and oily. Pt restarted cholestyramine this afternoon, and states it should get better with both those medications. Pt had both abdominal and renal u/s today. Nephrology consult has been called, and pt is prepped for his paracentesis tomorrow. No further concerns at this time.
--- NOTE | 2019-11-13 19:10 | NUR ---
Report given to REBEKA Toscano.
[2019-11-13 19:49] VITALS: BP 140/83; TEMP 98.1
--- NOTE | 2019-11-13 20:15 | NUR ---
Patient assessed at this time. Alert and oriented, and able to make needs known. Denies having pain and discomfort at this time. Peripheral INT to right AC. Site is without redness, warmth, swelling, and pain. Denies SOB and dyspnea. LS CTA. Respirations even and unlabored. HRR. Telemetry in place. Capillary refill less than 3 seconds. NOn-tenting skin turgor. BSAx4. Abdomen soft and non-tender. 2+ edema BLE. Indwelling hui catheter patent, with clear yellow urine. Voices no questions, needs, or concerns at this time. Resting in bed with call light within reach.
[2019-11-13 21:34] LABS: C-PEPTIDE,SERUM 1.28 ng/mL (0.80-3.90)
[2019-11-13 23:52] VITALS: BP 125/85; PULSE 82; TEMP 97.8
[2019-11-14 04:15] VITALS: BP 135/87; PULSE 82; TEMP 98.1
--- NOTE | 2019-11-14 05:12 | NUR ---
Patient has denied having pain and discomfort this shift. Resting in bed with call light within reach.
[2019-11-14 06:34] LABS: INR 1.2 (0.8-3.0); PROTHROMBIN TIME 13.3 SECONDS (9.7-12.8)
[2019-11-14 06:38] LABS: ALBUMIN 2.3 gm/dL (3.5-5.0); BILIRUBIN,TOTAL 0.4 mg/dL (0.0-1.0); CALCIUM 8.5 mg/dL (8.4-10.2); CREATININE, serum 1.96 (0.66-1.25); MAGNESIUM 1.5 mg/dL (1.6-2.3); POTASSIUM 4.1 mmol/L (3.4-5.0); TOTAL PROTEIN 5.5 gm/dL (6.4-8.2)
[2019-11-14 06:47] LABS: BASO % 0.9 % (0.0-2.0); EOS # 0.2 (0.0-0.7); EOS % 5.4 % (0-4.0); GRAN # 2.7 (1.4-6.5); GRAN % 61.4 % (42.2-75.2); IRON,SERUM 82 ug/dL (35-150); LYMPH # 1.1 (1.2-3.4); LYMPH % 24.9 % (20.0-51.0); MEAN CELL VOLUME 93 fl (80.0-100.0); MEAN CORPUSCULAR HGB CONC 31 g/dl (33.0-37.0); MEAN PLATELET VOLUME 10.1 fl (7.4-10.4); MONO # 0.3 (0.1-0.6); MONO % 7.2 % (1.7-9.3); PLATELET COUNT 184 K/mm3 (130-400); RED BLOOD COUNT 3.15 M/mm3 (4.20-5.60); REDCELL DISTRIBUTION WIDTH-CV 14.2 % (11.5-14.5); RETIC # 0.05 M/mm3 (0.02-0.16); RETIC % 1.6 % (0.5-3.52)
[2019-11-14 06:49] LABS: HEMATOCRIT 29.3 % (42.0-52.0); HEMOGLOBIN 9.2 g/dl (13.5-18.0); MEAN CORPUSCULAR HEMOGLOBIN 29 pg (27.0-31.0)
[2019-11-14 06:57] LABS: TOTAL IRON BINDING CAPACITY 190 ug/dL (261-462)
[2019-11-14 07:14] VITALS: BP 147/85; PULSE 81; TEMP 97.9
[2019-11-14 10:11] LABS: PERITONEAL -POLYMORPHONUCLEAR 16.2 % (0-25); PERITONEAL FLUID RBC 0 /mm3 (0-0)
[2019-11-14 12:09] VITALS: BP 156/82; PULSE 77; TEMP 97.2
[2019-11-14 17:58] VITALS: BP 147/79; PULSE 87; TEMP 98.1
--- NOTE | 2019-11-14 19:11 | NUR ---
REPORT GIVEN TO REBEKA CALVERT
--- NOTE | 2019-11-14 19:30 | NUR ---
Patient assessed at this time. Alert and oriented x 4, and able to make needs known. Complained of level 5 pain to bilateral feet and ankles. PRN Voltaren gel placed to areas as requested. Peripheral INT to right AC. Site is without redness, warmth, swelling, and pain. Denies SOB and dyspnea. LS CTA. Respirations even and unlabored. HRR. Telemetry in place: normal sinus. Capillary refill less than 3 seconds. Non-tenting skin turgor. BSAx4. Abdomen soft and non-tender. 1+ edema BLE. Found chew tobacco in patient's bed. Education provided to patient that the hospital is a tobacco free campus. Voiced understanding. Given to house player to lock away. Resting in bed with call light within reach.
[2019-11-14 19:47] VITALS: BP 147/79; PULSE 90; TEMP 98
[2019-11-14 23:41] VITALS: BP 127/75; PULSE 79; TEMP 98.3
[2019-11-15 03:42] VITALS: BP 106/64; PULSE 74; TEMP 98.4
[2019-11-15 05:05] LABS: FOLATE (FOLIC ACID) 15.2 ng/mL (>=4.0)
[2019-11-15 07:27] LABS: CALCIUM 8.2 mg/dL (8.4-10.2); CREATININE, serum 2.02 (0.66-1.25); POTASSIUM 4.1 mmol/L (3.4-5.0)
--- NOTE | 2019-11-15 07:33 | NUR ---
Patient has voiced no further complaints of pain or discomfort at this time. Voices no questions, needs, or concerns. Resting in bed with call light within reach.
[2019-11-15 07:42] LABS: BASO % 0.8 % (0.0-2.0); EOS # 0.2 (0.0-0.7); EOS % 5.1 % (0-4.0); LYMPH # 1.3 (1.2-3.4); LYMPH % 32.7 % (20.0-51.0); MEAN CELL VOLUME 91 fl (80.0-100.0); MEAN CORPUSCULAR HGB CONC 32 g/dl (33.0-37.0); MEAN PLATELET VOLUME 10.1 fl (7.4-10.4); MONO # 0.4 (0.1-0.6); MONO % 9.4 % (1.7-9.3); PLATELET COUNT 180 K/mm3 (130-400); RED BLOOD COUNT 3.13 M/mm3 (4.20-5.60); REDCELL DISTRIBUTION WIDTH-CV 13.9 % (11.5-14.5)
[2019-11-15 07:48] VITALS: BP 145/82; PULSE 81; TEMP 97.6
[2019-11-15 07:48] LABS: HEMATOCRIT 28.5 % (42.0-52.0); MEAN CORPUSCULAR HEMOGLOBIN 29 pg (27.0-31.0)
[2019-11-15 11:40] VITALS: BP 143/79; PULSE 83; TEMP 98.1
[2019-11-15 16:45] VITALS: BP 133/73; PULSE 78; TEMP 98.4
--- NOTE | 2019-11-15 19:41 | NUR ---
Pt rested in the room today, no C/O pain, provided education in the bowel prep for tonight. VS have remained stable.
--- NOTE | 2019-11-15 19:50 | NUR ---
Patient assessed at this time. Alert and oriented x 4, and able to make needs known. Reported mild pain to feet/ankles. Voltaren gel applied as requested. Peripheral INT to right AC. Site is without redness, warmth, swelling, and pain. Denies SOB and dyspnea. LS CTA. Respirations even and unlabored. HRR. Telemetry in place: normal sinus. Capillary refill less than 3 seocnds. Non-tenting skin turgor. BSAx4. Abdomen soft and non-tender. Indwelling hui catheter with clear yellow urine via dependent drainage. 1+ edema BLE. Patient on bowel prep, tolerating well so far. Denies having questions, needs, or concerns at this time. Resting in bed with call light within reach.
[2019-11-15 20:45] VITALS: BP 133/86; PULSE 60; TEMP 98.1
[2019-11-15 23:44] VITALS: BP 131/81; PULSE 78; TEMP 97.9
[2019-11-16 04:36] VITALS: BP 127/77; PULSE 75; TEMP 98.5
--- NOTE | 2019-11-16 05:52 | NUR ---
Patient tolerated bowel prep well. PCT reports that patient's stools are clear. Denies having pain and discomfort. Did not take protonix this morning due to being NPO for EGD. Voices no questions, needs, or concerns at this time. Resting in bed with call light within reach.
[2019-11-16 07:38] LABS: BASO % 0.5 % (0.0-2.0); EOS # 0.3 (0.0-0.7); EOS % 6.8 % (0-4.0); GRAN # 1.9 (1.4-6.5); GRAN % 50.9 % (42.2-75.2); LYMPH # 1.2 (1.2-3.4); LYMPH % 31.5 % (20.0-51.0); MEAN CELL VOLUME 91 fl (80.0-100.0); MEAN CORPUSCULAR HGB CONC 32 g/dl (33.0-37.0); MEAN PLATELET VOLUME 10.2 fl (7.4-10.4); MONO # 0.4 (0.1-0.6); PLATELET COUNT 188 K/mm3 (130-400); RED BLOOD COUNT 2.97 M/mm3 (4.20-5.60); REDCELL DISTRIBUTION WIDTH-CV 13.7 % (11.5-14.5)
[2019-11-16 07:44] LABS: HEMATOCRIT 26.9 % (42.0-52.0); HEMOGLOBIN 8.6 g/dl (13.5-18.0); MEAN CORPUSCULAR HEMOGLOBIN 29 pg (27.0-31.0)
[2019-11-16 07:49] LABS: BILIRUBIN,TOTAL 0.4 mg/dL (0.0-1.0); CALCIUM 8.4 mg/dL (8.4-10.2); CREATININE, serum 1.81 (0.66-1.25); POTASSIUM 4.3 mmol/L (3.4-5.0)
[2019-11-16 07:51] LABS: INR 1.2 (0.8-3.0); PROTHROMBIN TIME 12.9 SECONDS (9.7-12.8)
--- NOTE | 2019-11-16 10:11 | NUR ---
Patient is alert and oiented in his room. complain of pain in his legs at 7/10. legs are red and "painful." patient had endo and clolonoscopy this morning. Running stool x2 after procedure this morning. Patien have multiple bruises in his hands. hui catherer in place. patient resting in bed at this time
[2019-11-16 12:06] VITALS: BP 158/84; PULSE 68; TEMP 97.9
[2019-11-16 16:00] VITALS: BP 161/92; PULSE 72; TEMP 98.7
--- NOTE | 2019-11-16 16:02 | NUR ---
SW contacted the patient to review discharge plan. The patient reports that he is doing okay. Waiting on some test results to know what is going on and to get some answers. He states that he is feeling a lot better than when he came in and is ready to get home. He had no other questions or concerns for SW. No additional needs at this time.
[2019-11-16 18:20] VITALS: BP 161/92; PULSE 72; TEMP 98.2
[2019-11-16 19:46] VITALS: BP 149/80; PULSE 84; TEMP 98.4
[2019-11-17 00:31] VITALS: BP 138/81; PULSE 75; TEMP 98.5
[2019-11-17 04:24] VITALS: BP 127/74; PULSE 79; TEMP 97.8
--- NOTE | 2019-11-17 05:43 | NUR ---
PATIENT TOOK HIS HS MEDICATIONS WITHOUT ISSUES AND THEN TOOK HIS POWDER MEDICATION IN TWO LITTLE CONTAINERS OF ORANGE JUICE. PATIENT ONLY CALLED DURING THE NIGHT WHEN HE NEEDED TO GO TO THE BATHROOM. PATIENT SLEPT THROUGH THE NIGHT. DENIES ANY OTHER NEEDS, WILL REPORT OFF TO DAY SHIFT.
[2019-11-17 06:10] LABS: BASO % 0.7 % (0.0-2.0); EOS # 0.3 (0.0-0.7); EOS % 7.6 % (0-4.0); GRAN # 2.1 (1.4-6.5); GRAN % 49.4 % (42.2-75.2); LYMPH # 1.4 (1.2-3.4); LYMPH % 31.9 % (20.0-51.0); MEAN CELL VOLUME 91 fl (80.0-100.0); MEAN CORPUSCULAR HGB CONC 32 g/dl (33.0-37.0); MONO # 0.4 (0.1-0.6); MONO % 10.2 % (1.7-9.3); PLATELET COUNT 174 K/mm3 (130-400); RED BLOOD COUNT 3.03 M/mm3 (4.20-5.60); REDCELL DISTRIBUTION WIDTH-CV 13.9 % (11.5-14.5)
[2019-11-17 06:11] LABS: HEMATOCRIT 27.7 % (42.0-52.0); HEMOGLOBIN 8.9 g/dl (13.5-18.0); MEAN CORPUSCULAR HEMOGLOBIN 29 pg (27.0-31.0)
[2019-11-17 06:22] LABS: ALBUMIN 2.1 gm/dL (3.5-5.0); BILIRUBIN,TOTAL 0.4 mg/dL (0.0-1.0); CALCIUM 8.3 mg/dL (8.4-10.2); CREATININE, serum 1.79 (0.66-1.25); POTASSIUM 4.7 mmol/L (3.4-5.0); TOTAL PROTEIN 5.1 gm/dL (6.4-8.2)
[2019-11-17 07:59] VITALS: BP 145/82; PULSE 78; TEMP 98.1
[2019-11-17 11:25] VITALS: BP 139/83; PULSE 68; TEMP 98.3
[2019-11-17] MEDS ORDERED: PROTONIX 40MG T40 MG PO (11:39)
[2019-11-17] MEDS ORDERED: LASIX 40MG TABL40 MG PO (11:40)
[2019-11-17] MEDS ORDERED: SODIUM BICARBO650 MG PO (11:40)
[2019-11-17] MEDS ORDERED: ALDACTONE 25MG25 M1 PO (11:41)
--- NOTE | 2019-11-17 11:41 | NUR ---
Patient is alert and oriented. denies any pain. skin is dry with generalized eczema rash. patient seem irritated this morning. Farfan catherer removed.
--- NOTE | 2019-11-17 16:33 | NUR ---
Patient was discharged with Furosemide, Protonic, sodium bicarbonate, spironlactone, shortness of breath information. Patient was reminded about his future appointment withe GI, Surgical Clinical Reviewer, and PCP and blood draw for CBC. IV discontinued.
[2019-11-18 15:13] LABS: ANA SCREEN with REFLEX Negative (Negative)
[2019-11-19 11:04] LABS: ALPHA 1 ANTITRYPSIN TOTAL 159.8 mg/dL (())
== END 2019-11-17 15:30 | disposition home or self-care (01) | DRG 433 ==
LOC: COL.ER 15:13 → MEDICAL 17:49
PROVIDERS: Emergency Medicine; Internal Medicine; Internal Medicine Gastroenterology; Physician Assistant; ADMIT Student in an Organized Health Care Education/Training Program
PROC: 0W9G3ZZ Drainage of Peritoneal Cavity, Percutaneous Approach (ICD-10-PCS; principal; 2019-11-14)
DX: K70.31 Alcoholic cirrhosis of liver with ascites (principal); E87.2 Acidosis; Q60.0 Renal agenesis, unilateral; I13.0 Hypertensive heart and chronic kidney disease with heart failure and stage 1 through stage 4 chronic kidney disease, or unspecified chronic kidney disease; I50.30 Unspecified diastolic (congestive) heart failure; E78.5 Hyperlipidemia, unspecified; K21.9 Gastro-esophageal reflux disease without esophagitis; N18.3 Chronic kidney disease, stage 3 (moderate); M19.90 Unspecified osteoarthritis, unspecified site; G89.29 Other chronic pain; E11.42 Type 2 diabetes mellitus with diabetic polyneuropathy; M10.9 Gout, unspecified; G62.9 Polyneuropathy, unspecified; D64.9 Anemia, unspecified; E11.22 Type 2 diabetes mellitus with diabetic chronic kidney disease; E11.40 Type 2 diabetes mellitus with diabetic neuropathy, unspecified; Z90.49 Acquired absence of other specified parts of digestive tract; Z90.89 Acquired absence of other organs; Z79.82 Long term (current) use of aspirin; Z87.891 Personal history of nicotine dependence; Z87.11 Personal history of peptic ulcer disease
CPT/HCPCS: 99223-AI; 99232-AI; 99233-AI; 99239; J1644; J1815; J1940; J2704; J7030

== ENCOUNTER 2019-11-28 13:55 | Emergency (ER) | payer BC, OTHER ==
[~2019-11-28] VITALS: Ht 180.3 cm; Wt 79.5 kg
[~2019-11-28 13:55] MED LIST changes: +ALDACTONE 25MG25 M1 PO; +ALLEGRA 180MG180 MG PO; +ASPIRIN 81M81 MG/TA2 PO; +BASAGLAR K100 UNIT/1 SQ; +ELOCON0.11 TOP; +FOLIC ACID 11 MG/TA1 PO; +JARDIANCE10; +LASIX 40MG TABL40 MG PO; +PRINIVIL40 MG PO; +QUESTRAN4 GM/9 GM PO; +SODIUM BICARBO650 MG PO; +ZYPREXA 5MG5 MG PO
[2019-11-28 14:06] VITALS: TEMP 97.9
[2019-11-28 14:21] LABS: BASO % 0.6 % (0.0-2.0); EOS # 0.3 (0.0-0.7); EOS % 3.8 % (0-4.0); GRAN % 70.7 % (42.2-75.2); LYMPH # 1.3 (1.2-3.4); MEAN CELL VOLUME 91 fl (80.0-100.0); MEAN CORPUSCULAR HGB CONC 32 g/dl (33.0-37.0); MEAN PLATELET VOLUME 9.5 fl (7.4-10.4); MONO # 0.5 (0.1-0.6); MONO % 6.6 % (1.7-9.3); PLATELET COUNT 200 K/mm3 (130-400); RED BLOOD COUNT 3.04 M/mm3 (4.20-5.60); REDCELL DISTRIBUTION WIDTH-CV 13.4 % (11.5-14.5)
[2019-11-28 14:25] LABS: HEMATOCRIT 27.8 % (42.0-52.0); HEMOGLOBIN 8.8 g/dl (13.5-18.0); MEAN CORPUSCULAR HEMOGLOBIN 29 pg (27.0-31.0)
[2019-11-28 14:27] LABS: INR 1.3 (0.8-3.0); PROTHROMBIN TIME 14.3 SECONDS (9.7-12.8)
[2019-11-28 14:39] LABS: ALBUMIN 2.2 gm/dL (3.5-5.0); BILIRUBIN,TOTAL 0.4 mg/dL (0.0-1.0); CALCIUM 7.9 mg/dL (8.4-10.2); CREATININE, serum 2.12 (0.66-1.25); MAGNESIUM 1.5 mg/dL (1.6-2.3); POTASSIUM 5.6 mmol/L (3.4-5.0); TOTAL PROTEIN 5.6 gm/dL (6.4-8.2)
[2019-11-28] MEDS ORDERED: SODIUM BICARBO650 MG PO ×2 (15:12)
[2019-11-28 15:29] VITALS: BP 134/82; PULSE 80
== END 2019-11-28 15:34 | disposition home or self-care (01) ==
LOC: COL.ER 13:55
PROVIDERS: Emergency Medicine
DX: K74.60 Unspecified cirrhosis of liver (principal); E87.5 Hyperkalemia; E11.22 Type 2 diabetes mellitus with diabetic chronic kidney disease; N18.9 Chronic kidney disease, unspecified; F17.210 Nicotine dependence, cigarettes, uncomplicated; Z79.4 Long term (current) use of insulin; Z87.19 Personal history of other diseases of the digestive system; Z90.49 Acquired absence of other specified parts of digestive tract

== ENCOUNTER → 2019-12-06 | Outpatient (CLI) | payer BC ==
[~2019-12-06] VITALS: Ht 180.3 cm; Wt 83.0 kg
[~2019-12-06] MED LIST changes: +HCTZ 25MG TAB25 MG PO; +MAG-OX 400400 MG/TAB PO
[2019-12-06 12:55] VITALS: BP 156/96; PULSE 89
[2019-12-06 13:42] VITALS: BP 143/91; PULSE 83
--- NOTE | 2019-12-06 14:15 | NUR ---
PT TAKEN TO HIS POV
== END ==
LOC: COL.RAD 12:35
DX: K70.31 Alcoholic cirrhosis of liver with ascites (principal)

== ENCOUNTER → 2019-12-17 | Outpatient (CLI) | payer BC ==
[~2019-12-17] VITALS: Ht 180.3 cm; Wt 83.5 kg
[2019-12-17 13:28] VITALS: BP 143/83; PULSE 94
[2019-12-17 14:35] VITALS: BP 126/77; PULSE 85
== END ==
LOC: COL.RAD 12:59
DX: K70.31 Alcoholic cirrhosis of liver with ascites (principal)
CPT/HCPCS: 19804

== ENCOUNTER 2019-12-25 13:14 | Outpatient (CLI) | payer BC ==
[~2019-12-25] VITALS: Ht 180.3 cm; Wt 85.7 kg
[2019-12-25 13:27] VITALS: BP 152/88; PULSE 98
[2019-12-25 14:35] VITALS: BP 124/90; PULSE 78
--- NOTE | 2019-12-25 16:45 | NUR ---
Pt escorted out via wheelchair by this nurse.
[2019-12-26] MEDS ORDERED: LOVENOX120 MG/0.8 SQ (17:28)
[2019-12-26] MEDS ORDERED: COUMADIN 5MG5 MG/TAB PO (17:28)
[2019-12-26] MEDS ORDERED: DOXYCYCLINE HY100 MG PO (17:28)
== END 2019-12-25 16:45 | disposition home or self-care (01) ==
LOC: COL.RAD 13:14
DX: K70.31 Alcoholic cirrhosis of liver with ascites (principal)
CPT/HCPCS: P9047

== ENCOUNTER 2019-12-26 12:31 | Emergency (ER) | payer BC ==
[~2019-12-26] VITALS: Ht 180.3 cm; Wt 75.0 kg
[2019-12-26 12:37] VITALS: TEMP 98.3
[2019-12-26 13:18] LABS: BASO % 0.3 % (0.0-2.0); EOS # 0.3 (0.0-0.7); EOS % 2.9 % (0-4.0); GRAN # 8.2 (1.4-6.5); GRAN % 77.9 % (42.2-75.2); LYMPH # 1.2 (1.2-3.4); LYMPH % 10.9 % (20.0-51.0); MEAN CELL VOLUME 89 fl (80.0-100.0); MEAN CORPUSCULAR HGB CONC 32 g/dl (33.0-37.0); MEAN PLATELET VOLUME 9.4 fl (7.4-10.4); MONO # 0.8 (0.1-0.6); MONO % 7.7 % (1.7-9.3); PLATELET COUNT 195 K/mm3 (130-400); RED BLOOD COUNT 3.14 M/mm3 (4.20-5.60); REDCELL DISTRIBUTION WIDTH-CV 14.1 % (11.5-14.5)
[2019-12-26 13:30] LABS: ALBUMIN 2.4 gm/dL (3.5-5.0); BILIRUBIN,TOTAL 0.4 mg/dL (0.0-1.0); C-REACTIVE PROTEIN 0.6 mg/dL (0.0-0.9); CALCIUM 8.2 mg/dL (8.4-10.2); CREATININE, serum 2.71 (0.66-1.25); HEMATOCRIT 27.9 % (42.0-52.0); HEMOGLOBIN 8.9 g/dl (13.5-18.0); MEAN CORPUSCULAR HEMOGLOBIN 28 pg (27.0-31.0); POTASSIUM 4.9 mmol/L (3.4-5.0); TOTAL PROTEIN 5.6 gm/dL (6.4-8.2)
[2019-12-26] MEDS ORDERED: COUMADIN 5MG5 MG/TAB PO (17:28)
[2019-12-26] MEDS ORDERED: LOVENOX120 MG/0.8 SQ (17:28)
[2019-12-26] MEDS ORDERED: DOXYCYCLINE HY100 MG PO (17:28)
[2019-12-26 17:56] LABS: INR 1.2 (0.8-3.0); PROTHROMBIN TIME 13.9 SECONDS (9.7-12.8)
[2019-12-26 18:00] VITALS: BP 118/79; PULSE 98
== END 2019-12-26 18:00 | disposition home or self-care (01) ==
LOC: COL.ER 12:31
PROVIDERS: Emergency Medicine
DX: I82.402 Acute embolism and thrombosis of unspecified deep veins of left lower extremity (principal); M71.22 Synovial cyst of popliteal space [Baker], left knee; E11.40 Type 2 diabetes mellitus with diabetic neuropathy, unspecified; E11.22 Type 2 diabetes mellitus with diabetic chronic kidney disease; I12.9 Hypertensive chronic kidney disease with stage 1 through stage 4 chronic kidney disease, or unspecified chronic kidney disease; N18.9 Chronic kidney disease, unspecified; Z87.891 Personal history of nicotine dependence; Z79.4 Long term (current) use of insulin; Z90.49 Acquired absence of other specified parts of digestive tract; Z90.89 Acquired absence of other organs
CPT/HCPCS: J0696; J3010; J3360; J7050

== ENCOUNTER → 2020-01-03 | Outpatient (CLI) | payer BC ==
[~2020-01-03] VITALS: Ht 180.3 cm; Wt 85.9 kg
[~2020-01-03] MED LIST changes: +COUMADIN 5MG5 MG/TAB PO; +DOXYCYCLINE HY100 MG PO; +LOVENOX120 MG/0.8 SQ
[2020-01-03 10:27] VITALS: BP 152/85; PULSE 92
[2020-01-03 10:56] LABS: INR 3.1 (0.8-3.0); PROTHROMBIN TIME 34.8 SECONDS (9.7-12.8)
--- NOTE | 2020-01-03 11:17 | NUR ---
procedure cancelled and rescheduled for 01/04/20 at 1100. repeat pt/inr
== END ==
LOC: COL.RAD 10:14
PROVIDERS: Internal Medicine
DX: K70.31 Alcoholic cirrhosis of liver with ascites (principal)

== ENCOUNTER 2020-01-04 10:47 | Outpatient (CLI) | payer BC ==
[2020-01-04 11:16] LABS: INR 2.5 (0.8-3.0)
[2020-01-04 14:53] VITALS: BP 113/61; PULSE 70; TEMP 97.6
== END 2020-01-04 23:31 | disposition home or self-care (01) ==
LOC: COL.RAD 10:47
PROVIDERS: Internal Medicine Gastroenterology
DX: K70.31 Alcoholic cirrhosis of liver with ascites (principal)
CPT/HCPCS: P9047

== ENCOUNTER 2020-01-08 11:02 | Outpatient (CLI) | payer BC ==
[~2020-01-08] VITALS: Ht 180.3 cm; Wt 84.5 kg
[2020-01-08 11:38] VITALS: BP 117/84; PULSE 87
[2020-01-08] MEDS ORDERED: COUMADIN 5MG5 MG/TAB PO (11:42)
[2020-01-08 13:04] VITALS: BP 115/77; PULSE 70
[2020-01-08 13:35] LABS: PERITONEAL -POLYMORPHONUCLEAR 17.6 % (0-25); PERITONEAL FLUID RBC 1000 /mm3 (0-0)
== END 2020-01-08 15:15 | disposition home or self-care (01) ==
LOC: COL.RAD 11:02
PROVIDERS: Internal Medicine
DX: K70.31 Alcoholic cirrhosis of liver with ascites (principal)
CPT/HCPCS: P9047

== ENCOUNTER → 2020-01-15 | Outpatient (CLI) | payer BC ==
[~2020-01-15] VITALS: Ht 180.3 cm; Wt 85.2 kg
[2020-01-15 09:16] VITALS: BP 139/86; PULSE 85
[2020-01-15 09:33] LABS: INR 7.1 (0.8-3.0); PROTHROMBIN TIME 80.5 SECONDS (9.7-12.8)
--- NOTE | 2020-01-15 09:40 | NUR ---
Dr Le notified of pts PT/INR. Procedure canceled. Pt rescheduled for paracentesis later this week with recheck of his labs. 0950 Pt out to car per wheelchair.
== END ==
LOC: COL.RAD 08:51
PROVIDERS: Internal Medicine Gastroenterology
DX: K70.31 Alcoholic cirrhosis of liver with ascites (principal)

== ENCOUNTER → 2020-01-17 | Outpatient (CLI) | payer BC ==
[~2020-01-17] VITALS: Ht 180.3 cm; Wt 86.0 kg
[2020-01-17 11:16] LABS: INR 4.8 (0.8-3.0)
--- NOTE | 2020-01-17 12:51 | NUR ---
PROCEDURE CANCELLED . PT 55.0/INR 4.8
== END ==
LOC: COL.RAD 10:17
PROVIDERS: Internal Medicine Gastroenterology
DX: K70.31 Alcoholic cirrhosis of liver with ascites (principal)

== ENCOUNTER 2020-01-25 09:41 | Outpatient (CLI) | payer BC ==
[~2020-01-25] VITALS: Ht 180.3 cm; Wt 88.0 kg
[2020-01-25 10:13] VITALS: BP 112/77; PULSE 93
[2020-01-25 10:17] LABS: INR 1.6 (0.8-3.0); PROTHROMBIN TIME 18.5 SECONDS (9.7-12.8)
[2020-01-25 12:00] VITALS: BP 107/63; PULSE 86
[2020-01-25 12:19] LABS: PERITONEAL -POLYMORPHONUCLEAR 24.4 % (0-25); PERITONEAL FLUID RBC 0 /mm3 (0-0)
--- NOTE | 2020-01-25 15:15 | NUR ---
IV DC'd with catheter intact, bleeding controlled at site. Pt assisted by wheelchair to car.
== END 2020-01-25 15:15 | disposition home or self-care (01) ==
LOC: COL.RAD 09:41
PROVIDERS: Internal Medicine Gastroenterology
DX: K70.31 Alcoholic cirrhosis of liver with ascites (principal)
CPT/HCPCS: P9047

== ENCOUNTER 2020-01-25 18:25 | Inpatient (IN) | payer BC ==
[~2020-01-25] VITALS: Ht 180.3 cm; Wt 72.7 kg
[2020-01-25 19:04] LABS: BASO % 0.4 % (0.0-2.0); EOS # 0.3 (0.0-0.7); EOS % 3.7 % (0-4.0); GRAN % 73.5 % (42.2-75.2); LYMPH # 1.1 (1.2-3.4); LYMPH % 15.5 % (20.0-51.0); MEAN CELL VOLUME 82 fl (80.0-100.0); MEAN CORPUSCULAR HGB CONC 34 g/dl (33.0-37.0); MEAN PLATELET VOLUME 9.4 fl (7.4-10.4); MONO # 0.5 (0.1-0.6); MONO % 6.6 % (1.7-9.3); PLATELET COUNT 140 K/mm3 (130-400); RED BLOOD COUNT 2.64 M/mm3 (4.20-5.60); REDCELL DISTRIBUTION WIDTH-CV 14.2 % (11.5-14.5)
[2020-01-25 19:10] LABS: INR 1.8 (0.8-3.0); PROTHROMBIN TIME 19.8 SECONDS (9.7-12.8)
[2020-01-25 19:11] LABS: HEMATOCRIT 21.6 % (42.0-52.0); HEMOGLOBIN 7.4 g/dl (13.5-18.0); MEAN CORPUSCULAR HEMOGLOBIN 28 pg (27.0-31.0)
[2020-01-25 19:14] LABS: ALBUMIN 2.6 gm/dL (3.5-5.0); BILIRUBIN,TOTAL 1.6 mg/dL (0.0-1.0); CALCIUM 7.7 mg/dL (8.4-10.2); CREATININE, serum 3.69 (0.66-1.25); TOTAL PROTEIN 5.6 gm/dL (6.4-8.2)
[2020-01-25 19:17] LABS: POTASSIUM 2.1 mmol/L (3.4-5.0)
--- NOTE | 2020-01-25 21:45 | NUR ---
Patient to medical room 319 at this time. He ambulates from stretcher to bed and is alert and oriented. Assessment B, Suicide risk assessment, COVID and Infectious disease screen complete at this time. Patient does not have any complaints of pain. He is very edematous in bilateral lower extremities with 3+ pitting. His abdomen is also distended and firm; He has had a paracentesis today, which he has done often. His lower extremities are reddened and warm; Patient states he has a diagnosed DVT in his left lower leg. He has generalized scabbing and sores all over his body from eczema and diabetes. He also has chronic diarrhea, which he is sometimes incontinent of. Lung sounds are clear and heart sounds are normal/regular. Currently replacing potassium per doctor's orders. Will continue to monitor.
[2020-01-25 21:54] VITALS: BP 129/74; PULSE 63; TEMP 98
[2020-01-25 22:23] LABS: CALCIUM 7.9 mg/dL (8.4-10.2); CREATININE, serum 3.63 (0.66-1.25); PHOSPHOROUS 3.9 mg/dL (2.5-4.5)
[2020-01-25 22:24] LABS: POTASSIUM 2.4 mmol/L (3.4-5.0)
[2020-01-26] VITALS (7 sets, daily range): BP systolic 102–120; BP diastolic 62–74; PULSE 69–87; TEMP 97.5–98.6
--- NOTE | 2020-01-26 00:50 | NUR ---
16 URDU WAGGONER CATHETER INSERTED AT THIS TIME, PER DOCTOR'S ORDER. CLEAR, YELLOW URINE DRAINS INTO THE COLLECTION BAG WITH INSERTION. PATIENT'S PENIS IS SWOLLEN PRIOR TO INSERTION DUE TO FLUID OVERLOAD BUT CATHETER INSERTS EASILY. STAT LOCK APPLIED. WILL CONTINUE TO MONITOR.
[2020-01-26 07:21] LABS: BASO % 0.5 % (0.0-2.0); EOS # 0.3 (0.0-0.7); EOS % 5.9 % (0-4.0); GRAN # 3.5 (1.4-6.5); GRAN % 64.2 % (42.2-75.2); LYMPH # 1.2 (1.2-3.4); LYMPH % 21.1 % (20.0-51.0); MEAN CELL VOLUME 82 fl (80.0-100.0); MEAN CORPUSCULAR HGB CONC 33 g/dl (33.0-37.0); MEAN PLATELET VOLUME 9.5 fl (7.4-10.4); MONO # 0.4 (0.1-0.6); MONO % 7.9 % (1.7-9.3); PLATELET COUNT 119 K/mm3 (130-400); RED BLOOD COUNT 2.83 M/mm3 (4.20-5.60); REDCELL DISTRIBUTION WIDTH-CV 14.1 % (11.5-14.5)
[2020-01-26 07:33] LABS: HEMATOCRIT 23.1 % (42.0-52.0); HEMOGLOBIN 7.7 g/dl (13.5-18.0); MEAN CORPUSCULAR HEMOGLOBIN 27 pg (27.0-31.0)
[2020-01-26 07:39] LABS: ALBUMIN 2.3 gm/dL (3.5-5.0); BILIRUBIN,TOTAL 1.2 mg/dL (0.0-1.0); CALCIUM 7.9 mg/dL (8.4-10.2); CREATININE, serum 3.28 (0.66-1.25); INR 1.7 (0.8-3.0); MAGNESIUM 1.8 mg/dL (1.6-2.3); PROTHROMBIN TIME 18.7 SECONDS (9.7-12.8); TOTAL PROTEIN 5.1 gm/dL (6.4-8.2)
[2020-01-26 07:40] LABS: POTASSIUM 2.8 mmol/L (3.4-5.0)
--- NOTE | 2020-01-26 08:18 | NUR ---
PATIENT ASSESSMENT COMPLETED. PATIENT RESTING IN BED BREAKFAST HAS ARRIVED. COMPLAINS OF PAIN BOTH UPPER LEGS. REPOSITIONED IN BED
--- NOTE | 2020-01-26 09:30 | NUR ---
Warfarin Initial Dosing Pharmacy Note Ordering Provider: Boogie Malone MD Indication: VTE/PE Treatment LABS: INR 1.7 Recommendation: Will increase Warfarin to 5.5 mg po qHS starting tonight. Pharmacy will continue to follow daily INR levels. Home Regimen: Warfarin 5 mg po qHS
--- NOTE | 2020-01-26 16:11 | NUR ---
PATIENT SLEEPING IN BED. NO SIGNS OF DISTRESS NOTED.
--- NOTE | 2020-01-26 17:20 | NUR ---
STOOL SAMPLES HAVE BEEN COLLECTED AND SENT PER ORDERS. REPORTS THAT LOOSE STOOLS ARE BETTER SINCE TAKING IMMODIUM
[2020-01-26 18:14] LABS: CLOSTRIDIUM DIFF A/B NEG
[2020-01-26 18:15] LABS: CLOSTRIDIUM DIFF A/B INTERP No C.diff present
--- NOTE | 2020-01-26 20:00 | NUR ---
At time of assessment, patient is resting in bed. He is alert and oriented with no complaints of pain; He does complain of neuropathy in his feet. Heart sounds are normal/regular, lungs are clear over diminished. He has 2+ pitting edema in bilateral lower extremities and feet. His left lower leg is reddened and warm; Patient states he has been diagnosed with a DVT in this leg. He has generalized sores/scabs all over his body that patient claims are from eczema, diabetes and scratching at night. There are some oozing areas on his lower extremities where the edema is. He has an indwelling hui that is actively draining yellow, clear urine. He states he has had several diarrhea bowel movements throughout the day and requests immodium with evening meds. Will continue to monitor.
[2020-01-27 04:10] VITALS: BP 108/69; PULSE 81; TEMP 98.7
[2020-01-27 06:06] LABS: INR 1.8 (0.8-3.0); PROTHROMBIN TIME 20.4 SECONDS (9.7-12.8)
--- NOTE | 2020-01-27 06:26 | NUR ---
Patient has had a resftul night. He has complained of neurpathy pain in his lower extremities. Pain medicines are being held due to kidney function. 24 hour urine initiated 01/25 at 06:15. Will continue to monitor.
--- NOTE | 2020-01-27 08:15 | NUR ---
Assessment complete. Patient sitting up in bed eating breakfast at this time. States that he feels fine, and that he felt fine before he was admitted. Reports pain in his feet due to neuropathy and that he has not been getting enough neurontin while hes been here, I assured I would bring it up to the physician. LLE displays redness and tenderness about 2 in above his ankle, states he doesnt know what it is from. No other complaints were expressed from the pt at this time. Call light is in reach.
[2020-01-27 09:14] VITALS: BP 132/57; PULSE 107; TEMP 98.5
[2020-01-27 09:32] LABS: BASO % 0.4 % (0.0-2.0); EOS # 0.3 (0.0-0.7); EOS % 4.4 % (0-4.0); GRAN # 5.6 (1.4-6.5); GRAN % 74.3 % (42.2-75.2); LYMPH # 1.1 (1.2-3.4); LYMPH % 14.5 % (20.0-51.0); MEAN CELL VOLUME 84 fl (80.0-100.0); MEAN CORPUSCULAR HGB CONC 33 g/dl (33.0-37.0); MEAN PLATELET VOLUME 9.9 fl (7.4-10.4); MONO # 0.4 (0.1-0.6); MONO % 5.9 % (1.7-9.3); PLATELET COUNT 118 K/mm3 (130-400); RED BLOOD COUNT 2.74 M/mm3 (4.20-5.60); REDCELL DISTRIBUTION WIDTH-CV 14.4 % (11.5-14.5)
[2020-01-27 09:40] LABS: HEMATOCRIT 23.1 % (42.0-52.0); HEMOGLOBIN 7.7 g/dl (13.5-18.0); MEAN CORPUSCULAR HEMOGLOBIN 28 pg (27.0-31.0)
[2020-01-27 09:47] LABS: BILIRUBIN,TOTAL 0.8 mg/dL (0.0-1.0); CALCIUM 7.7 mg/dL (8.4-10.2); CREATININE, serum 3.08 (0.66-1.25); POTASSIUM 3.2 mmol/L (3.4-5.0); TOTAL PROTEIN 4.7 gm/dL (6.4-8.2)
[2020-01-27 11:45] VITALS: BP 120/72; PULSE 104; TEMP 98.7
--- NOTE | 2020-01-27 15:44 | NUR ---
SW contacted patient to discuss discharge planning. Patient indicated that he lives in [place] alone. He listed Sandra and Lyn [phone] as EMR and his care support. Patient reported that he does not have a DPOA, and declined one at this time. SM reported that his provider is Dr. Coronado, and he has an upcoming appointment on Tuesday. Patient reported that he gets his medications from [facility] in [place] with no concerns. Patient denied the use of any DME. Patient reported that he could possibly use someone to come assist with cleaning a couple of days a week. SM reported that sometimes his condition makes it hard to move around and attend duties. Patient did report that he had spoken to someone about this a few weeks ago and was informed that it would be out of pocket expenses. CHEMA will follow up.
[2020-01-27 16:00] VITALS: BP 127/91; PULSE 92; TEMP 99.3
--- NOTE | 2020-01-27 18:20 | NUR ---
Patient has had an uneventful day. he had a very large liquid stool sample this morning and recieved a complete bed bath and bed change, PRN immodium was provided. No bowel movements since then have been reported. he was expereince neuropathy pain in his feet earlier today and was concered that his gabapentin dose was not high enough, this was mentioned to the hospitalist. no other complaints through the day. Call light is in reach.
[2020-01-27 20:39] VITALS: BP 133/77; PULSE 110; TEMP 99.7
--- NOTE | 2020-01-27 23:00 | NUR ---
Pt assessment completed, charted, alert, oriented, roomair. Meds provided as per MAR, tolerated well. Helped to settled on his bed, call light on reach. No further needs at this time. 24 hrs urine collection in progress.
[2020-01-28] VITALS (7 sets, daily range): BP systolic 109–142; BP diastolic 66–78; PULSE 88–110; TEMP 98.1–98.9
--- NOTE | 2020-01-28 05:47 | NUR ---
Pt had an uneventful night, slept through out the night. No further needs at this time.
[2020-01-28 06:41] LABS: BASO % 0.4 % (0.0-2.0); EOS # 0.5 (0.0-0.7); EOS % 4.3 % (0-4.0); GRAN # 7.8 (1.4-6.5); GRAN % 75.1 % (42.2-75.2); LYMPH # 1.4 (1.2-3.4); LYMPH % 13.7 % (20.0-51.0); MEAN CELL VOLUME 84 fl (80.0-100.0); MEAN CORPUSCULAR HGB CONC 33 g/dl (33.0-37.0); MEAN PLATELET VOLUME 9.6 fl (7.4-10.4); MONO # 0.6 (0.1-0.6); MONO % 5.8 % (1.7-9.3); PLATELET COUNT 127 K/mm3 (130-400); RED BLOOD COUNT 2.86 M/mm3 (4.20-5.60); REDCELL DISTRIBUTION WIDTH-CV 14.4 % (11.5-14.5)
[2020-01-28 06:46] LABS: INR 2.5 (0.8-3.0); PROTHROMBIN TIME 27.8 SECONDS (9.7-12.8)
[2020-01-28 06:51] LABS: MEAN CORPUSCULAR HEMOGLOBIN 28 pg (27.0-31.0)
[2020-01-28 07:00] LABS: CALCIUM 7.8 mg/dL (8.4-10.2); CREATININE, serum 3.27 (0.66-1.25); MAGNESIUM 1.6 mg/dL (1.6-2.3); POTASSIUM 3.7 mmol/L (3.4-5.0)
--- NOTE | 2020-01-28 07:56 | NUR ---
Warfarin Follow-up Pharmacy Note Current regimen: WARFARIN 5.5MG QHS LABS: INR 2.5, UP FROM 1.8 Changes in therapy: DECREASE TO WARFARIN 5MG QHS
--- NOTE | 2020-01-28 08:19 | NUR ---
PT IN BED, ONLY WOULD ANSWER QUESTIONS BY SHAKING HEAD YES OR NO, SHOOK HEAD NO WHEN ASKED IF HE COULD TELL ME HIS NAME, BIRTHDAY, CURRENT YEAR, PRESIDENT. PT DENIES PAIN/DISCOMFORT AT THIS TIME. PEG TUBE HAS TUBE FEEDING RUNNING. PAUSES, RESIDUAL CHECKED, MEDS CRUSHED AND GIVEN THROUGH PEG TUBE. PT ASSESSMENT PERFORMED. ASSESSED ULCERS. NO OTHER NEEDS AT THIS TIME.
--- NOTE | 2020-01-28 09:19 | NUR ---
PT IN ROOM C/O DIHARREA. IMODIUM GIVEN, EDUCATED ON FREQUENCY AVAILABLE, PT DENIES PAIN NOW THAT STAT LOCK WAS MOVED ON LEG. PT WAS REPORTING DISCOMFORT FROM CATHETER BUT IT IS NOW RESOLVED WITH THE MOVING OF THE STATLOCK. ALL MEDICATIONS GIVEN, ASSESSMENT PERFORMED, PT PLEASANT, AOX4. NO OTHER NEEDS AT THIS TIME.
[2020-01-28 10:25] LABS: URINE TOTAL VOLUME 690 mL
[2020-01-28 10:26] LABS: CREATININE, serum 3.27 (0.66-1.25)
[2020-01-28 10:37] LABS: URINE CREATININE CLEARANCE 16.6 mL/min (97-137)
--- NOTE | 2020-01-28 15:25 | NUR ---
PT VOMITED ON HIMSELF. PT REPORTS NOT FEELING NAUSEOUS AFTER EPISODE. PT REPORTS LOW PAIN.
--- NOTE | 2020-01-28 18:38 | NUR ---
PT AOX4, PT EXPERIENCING SUDDEN N/V WITH RELIEF AFTERWARDS, DIALYSIS CATH PLACEMENT SCHEDULED FOR TOMORROW IF INR CHANGES, NPO AT MIDNIGHT. PT C/O INTERMITTANT ABD PAIN DURING THE DAY. MEDS GIVEN, ASSESSMENT PERFORMED, ZOFRAN REFUSED AT THIS TIME BECAUSE PT DOES NOT FEEL NAUSEOUS. PT BED BATH PROVIDED X3 DUE TO VOMITING. GOWN CHANGED AND LININS CHANGED DURING EACH EPISODE WELL. PT ZOE CARE PROVIDED WHEN INCONTINENT OF STOOL. INSULIN GIVEN, NO OTHER NEEDS AT THIS TIME.
--- NOTE | 2020-01-28 23:59 | NUR ---
Pt assessment completed, charted, alert, oriented, roomair. Meds provided as per AUG, tolerated well. Consent taken for the procedure tomorrow. Pt is on NPO after Midnight. Cleaned and helped to settled down on bed, call light on reach. No further needs at this time.
[2020-01-29] VITALS (11 sets, daily range): BP systolic 101–138; BP diastolic 60–87; PULSE 50–111; TEMP 97.7–99.9
--- NOTE | 2020-01-29 05:13 | NUR ---
Pt had an uneventful night, slept through out night. Cleaned, changed, amd postion changed couple of times through out the night. No further needs at this time,
[2020-01-29 07:36] LABS: INR 3.1 (0.8-3.0); PROTHROMBIN TIME 34.8 SECONDS (9.7-12.8)
--- NOTE | 2020-01-29 08:08 | NUR ---
Assessment complete. Patient sleeping in bed on entry, awoke easy to voice but was groggy. Spoke with him about the EGD procedure that he discussed with as he refused to sign the consent last night. After I reminded him he remembered the conversation he had with him and said he would sign the consent. Surgical fluids have been hung for his procedure. Patient denies nausea or vomiting at this time but states it was very bad yesterday. Reported some neuropathy pain in his feet. IV site is CD&I. No other needs were expressed. Call light is in reach.
--- NOTE | 2020-01-29 10:23 | NUR ---
Patient has been stable since arriving back for EGD, vitals stable. No other needs at this time pt states he is comfortable. Call light is inreac.
[2020-01-29 11:17] LABS: IRON,SERUM 87 ug/dL (35-150)
[2020-01-29 11:26] LABS: TOTAL IRON BINDING CAPACITY 143 ug/dL (261-462)
--- NOTE | 2020-01-29 14:16 | NUR ---
I met with Olvin this afternoon. Olvin reports that he sees a kidney doctor in [place] that comes to [place] about once a month. He reports that his abdomen is hurting because he has a lot of fluid built up and they can't drain it until his blood count gets better. He has been seen at [facility] for consideration of a kidney-liver transplant "but they haven't decided yet" what they are going to do. When asked about dialysis and paracentesis, he states "they haven't decided yet". I asked him what he enjoyed doing and he replied "nothing right now" "I don't feel like doing anything". He reports he lives alone and does have some friends but doesn't see them often. I asked him if he was wanting to do this consult later, "I don't care". "I won't feel any different later on". I let his nurse know that he was in pain and that I would try again tomorrow. I had asked him if he felt he could manage the medications/ doctor's visits/ and treatments that would be involved in dialysis or transplant and he said "Probably not, my car has 130,000+ miles on it and it will wear me out to have to go like that." Pt shows little insight into the future and what would be expected of him. His standard response is "THEY haven't decided yet".
[2020-01-29 14:24] LABS: CALCIUM 8.1 mg/dL (8.4-10.2); CREATININE, serum 3.49 (0.66-1.25); POTASSIUM 3.9 mmol/L (3.4-5.0)
--- NOTE | 2020-01-29 14:51 | NUR ---
Patient has been stable since recieving vitamin K, vitals were within normal limits through the whole infusion. No complaints fro the patient at this time. He continues to mention the abd pain and vomiting episodes he had yesterday but denies feeling that way today. No other needs were expressed at this time,.Call light is in reach.
--- NOTE | 2020-01-29 15:06 | NUR ---
CHEMA met with the patient to follow up and to review discharge plan. The patient states that he is doing okay. He states that he feels fine about returning home upon discharge. The patient lives alone in [place]. CHEMA inquired about a DPOA-HC. The patient does not have a DPOA-HC, but was interested in receiving a form. CHEMA to provide form. The patient states that he is , does not have a children, and that his mother is in [place]. The patient states that he only has two siblings: Alee and Sherry. CHEMA attempted to contact both sisters. CHEMA left them voicemails. CHEMA asked the hospitalist for PT/OT to be ordered. SW to continue to follow.
--- NOTE | 2020-01-29 15:15 | NUR ---
The patient's sister, Sandra, contacted SW back. Sandra reports that she is aware the patient is here. She states that the patient and her are kind of estranged though. She states that the patient contacts her sister, Alee, more and that she may have more information. SW to continue to follow.
--- NOTE | 2020-01-29 17:53 | NUR ---
Patient has had an uneventful shift. No nausea or vomiting through the day. No pain despite moaning and groaning with all movements in bed. New IV was placed in his right forarm as the left AC IV would not flush, pt tolerated well. Patient seems more tired and less willing to talk today then yesterday. Farfan is patent draining clear yellow urine. He is aware of his POC for placement of dialysis catheter tomorrow pending his INR. No other needs were expressed, call light is in reach.
[2020-01-29 19:17] LABS: PROTHROMBIN TIME 22.9 SECONDS (9.7-12.8)
--- NOTE | 2020-01-29 20:00 | NUR ---
Assessment complete at this time. Patient appears very drowsy, as aleshiaradha says he has been all day. He opens his eyes and answers orientation questions correctly but is very somnolent. He has been incontinent of diahrrea in his brief and is cleaned up at this time. His pernell area is reddened; Barrier cream applied. He doesn't complain of any pain but states he is still having neuropathy in his feet. His abdomen is distended and firm. His lower extremities have 3+ pitting edema and his left leg is slightly reddened.
[2020-01-30 04:00] VITALS: BP 116/67; PULSE 93; TEMP 98
--- NOTE | 2020-01-30 07:00 | NUR ---
Report with REBEKA Lundberg. Pt resting in bed, more alert than over night per nurse. No needs reported. Call light in reach.
[2020-01-30 07:17] LABS: BASO # 0.1 (0.0-0.2); BASO % 0.7 % (0.0-2.0); EOS # 0.6 (0.0-0.7); EOS % 5.9 % (0-4.0); GRAN # 7.1 (1.4-6.5); GRAN % 70.9 % (42.2-75.2); LYMPH # 1.5 (1.2-3.4); LYMPH % 15.1 % (20.0-51.0); MEAN CELL VOLUME 84 fl (80.0-100.0); MEAN CORPUSCULAR HGB CONC 34 g/dl (33.0-37.0); MEAN PLATELET VOLUME 9.8 fl (7.4-10.4); MONO # 0.7 (0.1-0.6); MONO % 6.8 % (1.7-9.3); PLATELET COUNT 137 K/mm3 (130-400); RED BLOOD COUNT 2.84 M/mm3 (4.20-5.60); REDCELL DISTRIBUTION WIDTH-CV 14.3 % (11.5-14.5)
[2020-01-30 07:18] LABS: INR 1.7 (0.8-3.0); PROTHROMBIN TIME 19.4 SECONDS (9.7-12.8)
[2020-01-30 07:30] LABS: ALBUMIN 2.1 gm/dL (3.5-5.0); CALCIUM 7.9 mg/dL (8.4-10.2); CREATININE, serum 3.89 (0.66-1.25); HEMATOCRIT 23.9 % (42.0-52.0); MAGNESIUM 1.9 mg/dL (1.6-2.3); MEAN CORPUSCULAR HEMOGLOBIN 28 pg (27.0-31.0); PHOSPHOROUS 4.4 mg/dL (2.5-4.5); POTASSIUM 3.9 mmol/L (3.4-5.0)
[2020-01-30 08:44] VITALS: BP 116/69; PULSE 88; TEMP 98.2
--- NOTE | 2020-01-30 11:12 | NUR ---
I have been down to see pt twice today, once he was asleep and the second time clinical laboratory scientist staff were discussing his procedure with him. I spoke with Cande TRUJILLO about this case and difficulty getting pt to talk about his goals. She states he is waiting to hear from [facility] about possible organ transplant, kidney/liver and he wants to hear from them first.
--- NOTE | 2020-01-30 11:15 | NUR ---
Pt to tender labor for procedure via bed.
[2020-01-30 11:45] VITALS: BP 126/74; PULSE 84
--- NOTE | 2020-01-30 11:46 | NUR ---
SEE MERGE DOCUMENTATION FOR MEDICATION ADMINISTRATION TIMES AND INTRA/POST PROCEDURE SEDATION ASSESSMENTS.
--- NOTE | 2020-01-30 12:30 | NUR ---
Pt back to room from bottle label inspector via bed. VSS. Pt awake and alert, requesting something to drink. Dressing over dialysis catheter site CDI. No further needs reported. Call light in reach.
--- NOTE | 2020-01-30 12:55 | NUR ---
Pt to rm 321 for dialysis via bed.
[2020-01-30 17:45] VITALS: BP 117/74; PULSE 90; TEMP 97.6
[2020-01-30 18:59] VITALS: BP 124/73; PULSE 100; TEMP 98
--- NOTE | 2020-01-30 19:00 | NUR ---
Report with REBEKA Barnard. Pt sitting up in bed eating dinner, denies needs at this time. Call light in reach.
[2020-01-30 22:55] LABS: HEPATITIS B SURFACE ANTIGEN Negative (Negative); HEPATITIS C VIRUS ANTIBODY Negative (Negative)
[2020-01-30 23:10] VITALS: BP 111/69; PULSE 97; TEMP 99.7
[2020-01-31 01:07] LABS: HEPATITIS B SURFACE ANTIBODY 7.8 (())
--- NOTE | 2020-01-31 03:31 | NUR ---
Pt assessment completed, charted, alert, oriented, roomair. Meds provided as per AUG, tolerated well. Settled on bed, call light on reach. No further needs at this time.
[2020-01-31 03:54] VITALS: BP 116/69; PULSE 93; TEMP 99.4
--- NOTE | 2020-01-31 05:21 | NUR ---
Pt had an uneventful night, slept through out the night. Changed and repositioned multiple times at night, call light on reach. No further need at this time.
[2020-01-31 07:25] LABS: BASO # 0.1 (0.0-0.2); BASO % 0.6 % (0.0-2.0); EOS # 0.4 (0.0-0.7); EOS % 3.6 % (0-4.0); GRAN # 7.2 (1.4-6.5); GRAN % 72.1 % (42.2-75.2); LYMPH # 1.5 (1.2-3.4); LYMPH % 15.2 % (20.0-51.0); MEAN CELL VOLUME 85 fl (80.0-100.0); MEAN CORPUSCULAR HGB CONC 32 g/dl (33.0-37.0); MEAN PLATELET VOLUME 9.8 fl (7.4-10.4); MONO # 0.8 (0.1-0.6); MONO % 7.5 % (1.7-9.3); PLATELET COUNT 129 K/mm3 (130-400); RED BLOOD COUNT 2.78 M/mm3 (4.20-5.60); REDCELL DISTRIBUTION WIDTH-CV 14.5 % (11.5-14.5)
[2020-01-31 07:26] LABS: HEMATOCRIT 23.6 % (42.0-52.0); HEMOGLOBIN 7.6 g/dl (13.5-18.0); MEAN CORPUSCULAR HEMOGLOBIN 27 pg (27.0-31.0)
[2020-01-31 07:28] LABS: INR 1.5 (0.8-3.0); PROTHROMBIN TIME 17.2 SECONDS (9.7-12.8)
[2020-01-31 07:51] LABS: ALBUMIN 2.2 gm/dL (3.5-5.0); CALCIUM 7.9 mg/dL (8.4-10.2); CREATININE, serum 3.83 (0.66-1.25); TOTAL PROTEIN 5.2 gm/dL (6.4-8.2)
[2020-01-31 08:21] VITALS: BP 110/70; PULSE 89; TEMP 98.3
--- NOTE | 2020-01-31 09:26 | NUR ---
CHEMA consulted Financial Counselor, Chanelle, about a Medicaid application for the patient. Chanelle plans to meet with the patient today.
[2020-01-31 11:56] VITALS: BP 129/75; PULSE 86; TEMP 97.8
--- NOTE | 2020-01-31 12:56 | NUR ---
PATIENT AT DIALYSIS
--- NOTE | 2020-01-31 14:49 | NUR ---
TELEY CALLED AND REPORTED THAT THE PATIENT WAS TACHYCARDIC. THIS NURSE CALLED DIALYSIS NURSE THAT HAD ALREADY BEEN AWARE AND TALKED TO DR. PEDROZA ABOUT THE SITUATION. WILL CONTINUE TO MONITOR
--- NOTE | 2020-01-31 14:54 | NUR ---
I did talk with shira briefly again during dialysis. he reports he has not yet heard from [facility] about a transplant and that will be dtermining factor. I left our conversation at that and said I would check in later.
[2020-01-31 15:30] VITALS: BP 126/71; PULSE 105; TEMP 98.2
--- NOTE | 2020-01-31 15:32 | NUR ---
PATIENT IS BACK FROM DIALYSIS. PATIENT WAS CLEANED UP. PATIENT IS NOT HUNGRY AT THIS TIME. PATIENT WAS GIVEN A FRESH ICE TEA.
--- NOTE | 2020-01-31 16:16 | NUR ---
SW met with the patient to review d/c plan and to discuss PT/OT's recommendation of likely needing post-acute rehab. The patient reports that he would like to return home, but realizes he is not getting around very well at this time. The patient has [facility] and will be new to dialysis. The patient was agreeable for CHEMA to send referrals to [facility], [facility], [facility], and [facility]. CHEMA consulted IPR Director, Diane. CHEMA contacted and faxed a referral to the other four facilities. SW awaiting their screens.
--- NOTE | 2020-01-31 19:05 | NUR ---
Received report from [place]. Seen patient awake, lying in bed. He is alert and oriented. With INT on left forearm. With dialysis catheter on his right chest, clean, dry and intact. With hui catheter. Patient complains of pain on his feet and requesting for Voltaren Gel before he sleeps.
[2020-01-31 19:17] VITALS: BP 124/75; PULSE 108; TEMP 98.3
[2020-01-31 23:08] VITALS: BP 121/83; PULSE 94; TEMP 99.2
[2020-02-01 03:36] VITALS: BP 118/75; PULSE 97; TEMP 99.2
--- NOTE | 2020-02-01 06:40 | NUR ---
Patient had 3x loose stools. He had been changed by Nichelle BRINK this morning. Dr. Mejia made his rounds and was able to talk to the patient.
[2020-02-01 07:09] LABS: BASO # 0.1 (0.0-0.2); BASO % 0.6 % (0.0-2.0); EOS # 0.5 (0.0-0.7); EOS % 4.9 % (0-4.0); GRAN # 6.1 (1.4-6.5); GRAN % 64.7 % (42.2-75.2); LYMPH # 1.9 (1.2-3.4); LYMPH % 19.7 % (20.0-51.0); MEAN CELL VOLUME 86 fl (80.0-100.0); MEAN CORPUSCULAR HGB CONC 32 g/dl (33.0-37.0); MEAN PLATELET VOLUME 9.9 fl (7.4-10.4); MONO # 0.9 (0.1-0.6); PLATELET COUNT 104 K/mm3 (130-400); REDCELL DISTRIBUTION WIDTH-CV 14.5 % (11.5-14.5)
[2020-02-01 07:11] LABS: HEMATOCRIT 23.2 % (42.0-52.0); HEMOGLOBIN 7.5 g/dl (13.5-18.0); MEAN CORPUSCULAR HEMOGLOBIN 28 pg (27.0-31.0)
[2020-02-01 07:20] LABS: INR 1.5 (0.8-3.0); PROTHROMBIN TIME 16.5 SECONDS (9.7-12.8)
[2020-02-01 07:28] LABS: ALBUMIN 2.1 gm/dL (3.5-5.0); BILIRUBIN,TOTAL 0.7 mg/dL (0.0-1.0); CALCIUM 7.7 mg/dL (8.4-10.2); CREATININE, serum 3.13 (0.66-1.25); PHOSPHOROUS 3.1 mg/dL (2.5-4.5); POTASSIUM 3.9 mmol/L (3.4-5.0); TOTAL PROTEIN 5.1 gm/dL (6.4-8.2)
[2020-02-01 08:17] VITALS: BP 119/68; PULSE 82; TEMP 98.3
[2020-02-01 12:29] VITALS: BP 120/62; PULSE 86; TEMP 97.8
[2020-02-01 12:43] LABS: CLOSTRIDIUM DIFF A/B NEG; CLOSTRIDIUM DIFF A/B INTERP No C.diff present
--- NOTE | 2020-02-01 13:34 | NUR ---
Diane, IPR Director, reports that they do not have a bed available at this time. CHEMA asked the hospitalist if the patient would be a candidate for [facility]. The hospitalist would like a [facility] eval for the patient. The patient is agreeable to [facility]. CHEMA contacted and faxed a referral to Shan at [facility]. SW awaiting their screen.
[2020-02-01 15:38] LABS: PERITONEAL -POLYMORPHONUCLEAR 18.4 % (0-25); PERITONEAL FLUID RBC 0 /mm3 (0-0)
--- NOTE | 2020-02-01 16:52 | NUR ---
Shan, at [facility], reports that they are able to accept the patient today and that they received authorization from the patient's insurance. CHEMA notified the clinical team. CHEMA updated the patient. The patient is agreeable to the transfer. CHEMA contacted and updated the patient's sister, Alee. Alee is supportive of the plan. The patient is to discharge today, 01/31, to [facility] in [place]. Transportation is scheduled at 1815, via [facility]. CHEMA informed the patient and his RN. They are both agreeable to the time. CHEMA also presented and read the EMS Transfer Consent form to the patient. The patient verbalized understanding and gave SW approval to sign the form on his behalf. No additional needs at this time.
[2020-02-01 17:52] VITALS: BP 120/62; PULSE 86; TEMP 97.8
--- NOTE | 2020-02-01 18:25 | NUR ---
Patient transfered by EMS to SNF. Nursing staff assisted with getting patient dressed. VSS Patient IV site Right FA CDI, coban covering. Farfan dependent drainage, clear yellow. New brief placed on patient. Personal belongings with patient. No further needs expressed from the patient. Discharge paperwork with EMS. Report called to SNF
== END 2020-02-01 18:25 | disposition short-term general hospital (02) | DRG 673 ==
LOC: COL.ER 18:25 → MEDICAL 18:47
PROVIDERS: Emergency Medicine; Hospitalist; Internal Medicine; Internal Medicine Gastroenterology; Internal Medicine Nephrology; Physician Assistant; ADMIT Student in an Organized Health Care Education/Training Program
PROC: 0JH63XZ Insertion of Tunneled Vascular Access Device into Chest Subcutaneous Tissue and Fascia, Percutaneous Approach (ICD-10-PCS; principal; 2020-01-30)
PROC: 02H633Z Insertion of Infusion Device into Right Atrium, Percutaneous Approach (ICD-10-PCS; 2020-01-30)
PROC: 5A1D70Z Performance of Urinary Filtration, Intermittent, Less than 6 Hours Per Day (ICD-10-PCS; 2020-01-30)
PROC: 0W9G3ZZ Drainage of Peritoneal Cavity, Percutaneous Approach (ICD-10-PCS; 2020-01-30)
DX: N17.9 Acute kidney failure, unspecified (principal); E43 Unspecified severe protein-calorie malnutrition; E87.1 Hypo-osmolality and hyponatremia; E87.6 Hypokalemia; E83.42 Hypomagnesemia; E87.8 Other disorders of electrolyte and fluid balance, not elsewhere classified; K70.31 Alcoholic cirrhosis of liver with ascites; E78.5 Hyperlipidemia, unspecified; E11.40 Type 2 diabetes mellitus with diabetic neuropathy, unspecified; K72.90 Hepatic failure, unspecified without coma; I12.9 Hypertensive chronic kidney disease with stage 1 through stage 4 chronic kidney disease, or unspecified chronic kidney disease; N18.6 End stage renal disease; E11.22 Type 2 diabetes mellitus with diabetic chronic kidney disease; F17.200 Nicotine dependence, unspecified, uncomplicated; K52.9 Noninfective gastroenteritis and colitis, unspecified; D63.1 Anemia in chronic kidney disease; Z86.718 Personal history of other venous thrombosis and embolism; Z79.4 Long term (current) use of insulin; Z79.01 Long term (current) use of anticoagulants; Z88.0 Allergy status to penicillin; Z88.2 Allergy status to sulfonamides; Z88.5 Allergy status to narcotic agent
CPT/HCPCS: 99223-AI; 99232-AI; 99233-AI; 99239; J1170; J1644; J1815; J1940; J2250; J2704; J2916; J3010; J3430; J3475; J3480; J7030; J7050; Q5105